=== PATIENT | female | born 1965 | race Caucasian/White ===

== ENCOUNTER 2019-11-25 03:00 | Emergency (ER) | payer OTHER, BC ==
[2019-11-25] MEDS ORDERED: ONDANSETRON 4 MG/2 ML VIAL ONE (04:16)
[2019-11-25] MEDS ORDERED: MORPHINE 4 MG/ML SYR ONE ×2 (04:16→06:45)
[2019-11-25] MEDS ORDERED: NA CHLORIDE 0.9% 1,000 ML ONE (04:16)
[2019-11-25 04:36] LABS: Basophils % 1.7 % (0-1.3); Hematocrit 41.8 % (36.0-45.0); Lymphocytes % 28.4 % (15.3-44.8); MPV 7.6 fL (7.6-11.3); RBC Red Blood Cell Count 4.92 M/uL (3.86-4.86)
[2019-11-25 04:51] LABS: Albumin 3.8 g/dL (3.4-5.0); Bilirubin Direct 0.1 mg/dL (0-0.2); Bilirubin Total 0.4 mg/dL (0.2-1.0); Potassium 4.2 mmol/L (3.5-5.1); Protein, Total 7.6 g/dL (6.4-8.2)
[2019-11-25 06:08] LABS: Urine Blood TRACE (NEG); Urine Glucose NEGATIVE (NEG); Urine Protein NEGATIVE (NEG); Urine Specific Gravity 1.015 (1.005-1.030)
[2019-11-25] MEDS ORDERED: CIPROFLOXACIN 400mg IV 400 MG/200 ML BAG IV ONE (06:40)
[2019-11-25] MEDS ORDERED: METRONIDAZOLE 500mg IVPB 500 MG/100 ML BAG IV ONE (06:40)
--- NOTE | 2019-11-25 06:55 | EDPHYS ---
Physician Documentation [facility] Name: Libra Coleman Age: 54 yrs Sex: Female : 1965 Arrival Date: 11/25/2019 Time: 03:03 Bed 8 Private MD: ED Physician Phil Souza HPI: 11/24 04:14 This 54 yrs old Female presents to ER via Ambulatory with complaints of Side mh7 Pain, COVID 19 +. 04:14 The patient presents with abdominal pain in the left lower quadrant. Onset: The mh7 symptoms/episode began/occurred 1 week(s) ago. The symptoms do not radiate. Associated signs and symptoms:. 04:15 Associated signs and symptoms: Pertinent positives: diarrhea, nausea, Pertinent mh7 negatives: anorexia, blood in stools, chest pain, constipation, dysuria, fever, headache, hematuria, palpitations, shortness of breath, vaginal discharge, vomiting, vomiting blood. The symptoms are described as intermittent, vague, waxing/waning. Modifying factors: The symptoms are alleviated by nothing, the symptoms are aggravated by nothing. Severity of pain: At its worst the pain was moderate yesterday, in the emergency department the pain has improved moderately. The patient has experienced similar episodes in the past, a few times. 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 - Social history:: Smoking status: Patient denies any tobacco usage or history of. ROS: 04:15 Constitutional: Negative for fever, chills, and weight loss, Eyes: Negative for injury, mh7 pain, redness, and discharge, ENT: Negative for injury, pain, and discharge, Neck: Negative for injury, pain, and swelling, Cardiovascular: Negative for chest pain, palpitations, and edema, Respiratory: Negative for shortness of breath, cough, wheezing, and pleuritic chest pain, Back: Negative for injury and pain, : Negative for injury, bleeding, discharge, and swelling, MS/Extremity: Negative for injury and deformity, Skin: Negative for injury, rash, and discoloration, Neuro: Negative for headache, weakness, numbness, tingling, and seizure, Psych: Negative for depression, anxiety, suicide ideation, homicidal ideation, and hallucinations, Allergy/Immunology: Negative for hives, rash, and allergies, Endocrine: Negative for neck swelling, polydipsia, polyuria, polyphagia, and marked weight changes, Hematologic/Lymphatic: Negative for swollen nodes, abnormal bleeding, and unusual bruising. Exam: 04:15 Constitutional: This is a well developed, well nourished patient who is awake, alert, mh7 and in no acute distress. Head/Face: Normocephalic, atraumatic. Eyes: Pupils equal round and reactive to light, extra-ocular motions intact. Lids and lashes normal. Conjunctiva and sclera are non-icteric and not injected. Cornea within normal limits. Periorbital areas with no swelling, redness, or edema. Neck: Trachea midline, no thyromegaly or masses palpated, and no cervical lymphadenopathy. Supple, full range of motion without nuchal rigidity, or vertebral point tenderness. No Meningismus. Chest/axilla: Normal chest wall appearance and motion. Nontender with no deformity. No lesions are appreciated. Cardiovascular: Regular rate and rhythm with a normal S1 and S2. No gallops, murmurs, or rubs. Normal PMI, no JVD. No pulse deficits. Respiratory: Lungs have equal breath sounds bilaterally, clear to auscultation and percussion. No rales, rhonchi or wheezes noted. No increased work of breathing, no retractions or nasal flaring. 04:15 Back: No spinal tenderness. No costovertebral tenderness. Full range of motion. Skin: Warm, dry with normal turgor. Normal color with no rashes, no lesions, and no evidence of cellulitis. MS/ Extremity: Pulses equal, no cyanosis. Neurovascular intact. Full, normal range of motion. Neuro: Awake and alert, GCS 15, oriented to person, place, time, and situation. Cranial nerves II-XII grossly intact. Motor strength 5/5 in all extremities. Sensory grossly intact. Cerebellar exam normal. Normal gait. Psych: Awake, alert, with orientation to person, place and time. Behavior, mood, and affect are within normal limits. 04:15 Abdomen/GI: Inspection: abdomen appears normal, obese Bowel sounds: normal, in all quadrants, Palpation: moderate abdominal tenderness, in the left lower quadrant, Rectal exam: the exam is deferred, because of patient request, Indicators: McBurney's point is not tender, Leiva's sign is negative, Rovsing's sign is negative, Obturator sign is negative, Psoas sign is negative, Liver: no appreciated palpable abnormalities, Hernia: not appreciated. Vital Signs: 03:23 BP 144 / 92; Pulse 87; Resp 18; Temp 98.0(O); Pulse Ox 100% on R/A; Weight 95.71 kg sg (R); Height 5 ft. 4 in. (162.56 cm); Pain 7/10; 04:40 BP 145 / 72; Pulse 78; Resp 19; Pulse Ox 100% ; rr5 05:57 BP 119 / 71; Pulse 80; Resp 16; Pulse Ox 99% on R/A; rr5 06:30 BP 135 / 76; Pulse 76; Resp 19; Temp 97.6; Pulse Ox 100% ; Pain 9/10; rr5 07:00 BP 132 / 71; Pulse 76; Resp 16; Pulse Ox 97% ; bp 08:00 BP 127 / 71; Pulse 67; Resp 17; Temp 97.9; Pulse Ox 99% ; bp 03:23 Body Mass Index 36.22 (95.71 kg, 162.56 cm) MDM: 03:56 Patient medically screened. mh7 06:52 Differential diagnosis: appendicitis, bowel obstruction, diverticulitis, non-specific mh7 abd pain, Pyelonephritis, Ureterolithiasis, urinary tract infection. Data reviewed: vital signs, nurses notes, lab test result(s), CBC, electrolytes, urinalysis, radiologic studies, CT scan. Data interpreted: Pulse oximetry: on room air is 100 %. Counseling: I had a detailed discussion with the patient and/or guardian regarding: the historical points, exam findings, and any diagnostic results supporting the discharge/admit diagnosis, lab results, radiology results, the need for outpatient follow up, to return to the emergency department if symptoms worsen or persist or if there are any questions or concerns that arise at home. Response to treatment: the patient's symptoms have markedly improved after treatment. 11/24 03:57 Order name: Basic Metabolic Panel; Complete Time: 04:56 11/24 03:57 Order name: CBC with Diff; Complete Time: 04:56 11/24 03:57 Order name: Hepatic Function; Complete Time: 04:56 11/24 03:57 Order name: Lipase; Complete Time: 04:56 11/24 05:23 Order name: CREATININE WHOLE BLOOD; Complete Time: 05:25 EDMS 11/24 05:24 Order name: CREATININE WHOLE BLOOD [facility] 11/24 03:57 Order name: CT Abd/Pelvis - IV Contrast Only [facility] 11/24 05:35 Order name: Urine Culture 11/24 05:35 Order name: Urine Microscopic Only 11/24 05:35 Order name: Urine --Ancillary (enter results); Complete Time: 06:16 tt11/24 05:35 Order name: Urine Dipstick--Ancillary (enter results); Complete Time: 06:16 tt11/24 03:57 Order name: IV Saline Lock; Complete Time: 04:25 11/24 03:57 Order name: Labs collected and sent; Complete Time: 04:25 11/24 03:57 Order name: Urine Dipstick-Ancillary (obtain specimen); Complete Time: 05:32 11/24 04:20 Order name: Urine Test (obtain specimen); Complete Time: 05:32 Administered Medications: 04:20 Drug: Zofran (Ondansetron) 4 mg Route: IVP; Site: right antecubital; rr5 05:20 Follow up: Response: No adverse reaction rr5 04:22 Drug: morphine 4 mg {Note: rass 0.} Route: IVP; Site: right antecubital; rr5 05:20 Follow up: Response: No adverse reaction; RASS: Alert and Calm (0) rr5 04:24 Drug: NS 0.9% 1000 ml Route: IV; Rate: 1000 ml; Site: right antecubital; rr5 05:10 Follow up: Response: No adverse reaction; IV Status: Completed infusion; IV Intake: rr5 1000ml 06:30 Drug: Flagyl 500 mg Volume: 100 ml; Route: IVPB; Rate: 200 ml/hr; Infused Over: 30 rr5 mins; Site: right antecubital; 07:00 Follow up: Response: No adverse reaction; IV Status: Completed infusion; IV Intake: rr5 100ml 07:25 Follow up: Response: No adverse reaction; IV Status: Completed infusion jr10 06:39 Drug: morphine 4 mg {Note: rass 0.} Route: IVP; Site: right antecubital; rr5 07:25 Follow up: Response: No adverse reaction jr10 07:24 Drug: Cipro 400 mg Volume: 200 ml; Route: IVPB; Infused Over: 60 mins; Site: right jr10 antecubital; 08:18 Follow up: IV Status: Completed infusion; IV Intake: 100ml bp Disposition: 11/25/19 06:54 Discharged to Home. Impression: Diverticulitis. - Condition is Stable. - Discharge Instructions: Diverticulitis, [id number]. - Prescriptions for Zofran ODT 4 mg Oral tablet,disintegrating - place 1 tablet by TRANSLINGUAL route every 8 hours; 10 tablet. Colace 100 mg Oral Capsule - take 1 tablet by ORAL route every 12 hours; 20 tablet. Flagyl 500 mg Oral Tablet - take 1 tablet by ORAL route every 8 hours for 10 days; 30 tablet. Tylenol- Codeine #3 300-30 mg Oral Tablet - take 2 tablets by ORAL route every 6 hours As needed; 24 tablet. Cipro 500 mg Oral Tablet - take 1 tablet by ORAL route every 12 hours for 10 days; 20 tablet. Bentyl 20 mg Oral Tablet - take 1 tablet by ORAL route every 6 hours As needed; 20 tablet. - Work release form, Medication Reconciliation Form, Thank You Letter, Antibiotic Education, Prescription Opioid Use form. - Follow up: Private Physician; When: 2 - 3 days; Reason: Worsening of condition, Recheck today's complaints, Continuance of care, Re-evaluation by your physician. Follow up: Carmine Bailey MD; When: 2 - 3 days; Reason: Worsening of condition, Recheck today's complaints. - Problem is an acute exacerbation. - Symptoms have improved. Signatures: Dispatcher [employer] EDDiego Solorio RN RN sg Aaron Velasquez RN RN Antonio Dougherty RN RN rr5 Phil Souza MD MD [facility] Denae Up RN RN [email or web address] Corrections: (The following items were deleted from the chart) 08:19 06:54 11/25/2019 06:54 Discharged to Home. Impression: Diverticulitis. Condition is bp Stable. Forms are Work release form, Medication Reconciliation Form, Thank You Letter, Antibiotic Education, Prescription Opioid Use. Follow up: Private Physician; When: 2 - 3 days; Reason: Worsening of condition, Recheck today's complaints, Continuance of care, Re-evaluation by your physician. Follow up: Carmine Bailey; When: 2 - 3 days; Reason: Worsening of condition, Recheck today's complaints. Problem is an acute exacerbation. Symptoms have improved. mh7
--- NOTE | 2019-11-25 06:55 | ER ---
Nurse's Notes [facility] Name: Libra Coleman Age: 54 yrs Sex: Female : 1965 Arrival Date: 11/25/2019 Time: 03:03 Bed 8 Private MD: Diagnosis: Diverticulitis Presentation: 11/24 03:23 Chief complaint: Patient states: Left sided abdominal pain that began on 11/18/2019, sg reports drinking OJ with Pulp to help with diarrhea and believes that may have caused a flare up of diverticulitis. pt states having Nausea, Diarrhea. Coronavirus screen: Patient denies a cough. Patient denies shortness of breath or difficulty breathing. Patient denies measured and/or subjective temperature greater than 100.4F prior to today's visit. Patient denies travel on a cruise ship or to a country the [facility] currently lists as an affected area. Patient denies contact with known and/or suspected case of COVID-19. Prior COVID test collected on: 11-16-2019 positive are currently unavailable. Ebola Screen: Patient negative for fever greater than or equal to 101.5 degrees Fahrenheit, and additional compatible Ebola Virus Disease symptoms Patient denies exposure to infectious person. Patient denies travel to an Ebola-affected area in the 21 days before illness onset. No symptoms or risks identified at this time. Initial Sepsis Screen: Does the patient meet any 2 criteria? No. Patient's initial sepsis screen is negative. Does the patient have a suspected source of infection? Yes: Acute abdominal pain. Risk Assessment: Do you want to hurt yourself or someone else? Patient reports no desire to harm self or others. Onset of symptoms was November 18, 2019. Care prior to arrival: None. Transition of care: patient was not received from another setting of care. 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 - Social history:: Smoking status: Patient denies any tobacco usage or history of. Screenin:30 Abuse screen: Denies threats or abuse. Denies injuries from another. Nutritional rr5 screening: No deficits noted. Tuberculosis screening: No symptoms or risk factors identified. Fall Risk IV access (20 points). Total Mallory Fall Scale indicates No Risk (0-24 pts). Assessment: 03:30 General: Appears in no apparent distress. uncomfortable, Behavior is calm, cooperative, rr5 appropriate for age. 03:30 Pain: Complains of pain in left lower quadrant Pain radiates to anterior aspect of left rr5 lateral abdomen Pain currently is 7 out of 10 on a pain scale. Quality of pain is described as aching, Pain began gradually, Is intermittent. Neuro: Level of Consciousness is awake, alert, obeys commands, Oriented to person, place, time, situation. Cardiovascular: Capillary refill < 3 seconds Patient's skin is warm and dry. Respiratory: Airway is patent Respiratory effort is even, unlabored, Respiratory pattern is regular, symmetrical. GI: Abdomen is round non-distended, Reports lower abdominal pain, diarrhea, nausea, vomiting. : No signs and/or symptoms were reported regarding the genitourinary system. EENT: No signs and/or symptoms were reported regarding the EENT system. Derm: Skin is intact, is healthy with good turgor, Skin temperature is warm. Musculoskeletal: Circulation, motion, and sensation intact. Capillary refill < 3 seconds. 04:30 Reassessment: Patient appears in no apparent distress at this time. Patient is alert, rr5 oriented x 3, equal unlabored respirations, skin warm/dry/pink. awaiting for results. 06:00 Reassessment: Patient appears in no apparent distress at this time. Patient is alert, rr5 oriented x 3, equal unlabored respirations, skin warm/dry/pink. awaiting for CT result. no complaints made. 06:30 Reassessment: Patient appears in no apparent distress at this time. complaints of rr5 abdominal pain, ED provider aware with order made and carried out. 07:00 Reassessment: RECD REPORT FROM JUSTICE HA. 54YO WF P/W LLQ PAIN, PRESUMPTIVE +COVID. bp D/C ON HOLD FOR ABX COMPLETION. 08:16 Reassessment: PT D/C HOME AMBULATORY, TO MAINTAIN HOME QUARANTINE. DX WITH bp DIVERTICULITIS. Vital Signs: 03:23 BP 144 / 92; Pulse 87; Resp 18; Temp 98.0(O); Pulse Ox 100% on R/A; Weight 95.71 kg sg (R); Height 5 ft. 4 in. (162.56 cm); Pain 7/10; 04:40 BP 145 / 72; Pulse 78; Resp 19; Pulse Ox 100% ; rr5 05:57 BP 119 / 71; Pulse 80; Resp 16; Pulse Ox 99% on R/A; rr5 06:30 BP 135 / 76; Pulse 76; Resp 19; Temp 97.6; Pulse Ox 100% ; Pain 9/10; rr5 07:00 BP 132 / 71; Pulse 76; Resp 16; Pulse Ox 97% ; bp 08:00 BP 127 / 71; Pulse 67; Resp 17; Temp 97.9; Pulse Ox 99% ; bp 03:23 Body Mass Index 36.22 (95.71 kg, 162.56 cm) ED Course: 03:03 Patient arrived in ED. cl3 03:22 Phil Souza MD is Attending Physician. mh7 03:23 Arm band placed on. sg 03:27 Triage completed. sg 03:30 Patient has correct armband on for positive identification. Bed in low position. Call rr5 light in reach. Pulse ox on. NIBP on. 03:46 Justice Atwood RN is Primary Nurse. rr5 04:20 No provider procedures requiring assistance completed. Inserted saline lock: 20 gauge rr5 in right antecubital area, using aseptic technique. Blood collected. 06:10 CT Abd/Pelvis - IV Contrast Only In Process Unspecified. EDMS 06:53 Carmine Bailey MD is Referral Physician. mh7 08:17 IV discontinued, intact, bleeding controlled, No redness/swelling at site. Pressure bp dressing applied. Administered Medications: 04:20 Drug: Zofran (Ondansetron) 4 mg Route: IVP; Site: right antecubital; rr5 05:20 Follow up: Response: No adverse reaction rr5 04:22 Drug: morphine 4 mg {Note: rass 0.} Route: IVP; Site: right antecubital; rr5 05:20 Follow up: Response: No adverse reaction; RASS: Alert and Calm (0) rr5 04:24 Drug: NS 0.9% 1000 ml Route: IV; Rate: 1000 ml; Site: right antecubital; rr5 05:10 Follow up: Response: No adverse reaction; IV Status: Completed infusion; IV Intake: rr5 1000ml 06:30 Drug: Flagyl 500 mg Volume: 100 ml; Route: IVPB; Rate: 200 ml/hr; Infused Over: 30 rr5 mins; Site: right antecubital; 07:00 Follow up: Response: No adverse reaction; IV Status: Completed infusion; IV Intake: rr5 100ml 07:25 Follow up: Response: No adverse reaction; IV Status: Completed infusion jr10 06:39 Drug: morphine 4 mg {Note: rass 0.} Route: IVP; Site: right antecubital; rr5 07:25 Follow up: Response: No adverse reaction jr10 07:24 Drug: Cipro 400 mg Volume: 200 ml; Route: IVPB; Infused Over: 60 mins; Site: right jr10 antecubital; 08:18 Follow up: IV Status: Completed infusion; IV Intake: 100ml bp Intake: 05:10 IV: 1000ml; Total: 1000ml. rr5 07:00 IV: 100ml; Total: 1100ml. rr5 08:18 IV: 100ml; Total: 1200ml. bp Outcome: 06:54 Discharge ordered by . Edwin 08:17 Discharged to home ambulatory. bp 08:17 Condition: stable 08:17 Discharge instructions given to patient, Instructed on discharge instructions, follow up and referral plans. medication usage, Demonstrated understanding of instructions, follow-up care, medications, Prescriptions given X 6 08:19 Patient left the ED. bp Signatures: Dispatcher [employer] EDMS Diego Pavon RN DILCIA Aaron Velasquez RN RN Justice Dougherty RN RN rr5 Aren Salinas3 Phil Souza MD MD Denae Magana RN RN [email or web address]
[2019-11-25 07:02] LABS: Urine Bacteria 20-50 /HPF (<20); Urine Culture Reflex Order NOT NEEDED; Urine RBC <5 /HPF (NONE SEEN)
[2019-11-25 08:31] VITALS: BP 127/71; TEMP 97.9; O2SAT 99
--- NOTE | 2019-11-25 17:33 | RAD REPORT ---
EXAM DESCRIPTION: CT - Abdomen Pelvis W Contrast - 11/25/2019 7:05 am CLINICAL HISTORY: ABD PAIN COMPARISON: None. TECHNIQUE: CT ABDOMEN PELVIS WITH IV CONTRAST on 11/25/2019 3:57 AM CDT This exam was performed according to our departmental dose-optimization program, which includes autom ated exposure control, adjustment of the mA and/or kV according to patient size and/or use of iterati ve reconstruction technique. FINDINGS: Lower lungs are clear. Abdomen: Liver is fatty in attenuation and is enlarged. There is no biliary dilatation. Gallbladder i s normal in appearance. The pancreas and spleen are normal in appearance. The adrenal glands and kidn eys are unremarkable. Abdominal aorta is normal in course and caliber without aneurysm. There is no free air. There is no r etroperitoneal adenopathy. Pelvis: There is mild left colonic diverticulosis. There is short segmental thickening of the distal descending colon with surrounding inflammation. Urinary bladder is unremarkable. There is no free flu id. Uterus is normal in size. Appendix is normal. Skeleton: There are no acute osseous findings. No suspicious bony lesions. IMPRESSION: Probable acute diverticulitis of the distal descending colon. Recommend follow-up colono scopy to exclude an underlying mass. Electronically signed by: Quincy Hagen MD 11/25/2019 5:49 AM CDT Due to temporary technical issues with the PACS/Fluency reporting system, reports are being signed by the in house radiologist without review as a courtesy to ensure prompt reporting. The interpreting r adiologist is fully responsible for the content of the report.
== END 2019-11-25 08:19 | disposition home or self-care (01) ==
LOC: ER 03:00
DX: K57.92 Diverticulitis of intestine, part unspecified, without perforation or abscess without bleeding (principal); E11.9 Type 2 diabetes mellitus without complications
CPT/HCPCS: 96365; 96367; 96361; 87088; 85025; 87086; 80048; 36415; 81025; 82565; 80076; 83690; 74177; 96375; 99284; Q9967; J7030; J2405; J0744; 81003; 81015

== ENCOUNTER 2020-10-21 09:52 | Emergency (ER) | payer BC, OTHER ==
[2020-10-21 10:56] LABS: Urine Blood Negative (Negative); Urine Glucose Negative (Negative); Urine Protein 1+ (Negative); Urine Specific Gravity >=1.030 (1.005-1.030); Urine pH 5.5 (5.0-7.0)
[2020-10-21 11:07] LABS: Albumin 3.8 g/dL (3.4-5.0); Bilirubin Direct 0.2 mg/dL (0-0.2); Bilirubin Total 0.8 mg/dL (0.2-1.0); Potassium 4.2 mmol/L (3.5-5.1); Protein, Total 7.7 g/dL (6.4-8.2)
[2020-10-21] MEDS ORDERED: ONDANSETRON 4 MG/2 ML VIAL ONE ×2 (11:07→12:50)
[2020-10-21] MEDS ORDERED: NA CHLORIDE 0.9% 1,000 ML ONE (11:07)
[2020-10-21] MEDS ORDERED: MORPHINE 4 MG/ML SYR ONE (11:07)
[2020-10-21 11:09] LABS: Urine Bacteria >50 /HPF (<20); Urine RBC NONE SEEN /HPF (NONE SEEN)
[2020-10-21 11:11] LABS: Absolute Lymphocytes (CBC) 3.4 K/uL (0.7-4.9); Basophils % 0.7 % (0-1.3); Hematocrit 41.8 % (36.0-45.0); Lymphocytes % 26.4 % (15.3-44.8); MPV 7.7 fL (7.6-11.3); RBC Red Blood Cell Count 4.87 M/uL (3.86-4.86)
--- NOTE | 2020-10-21 11:41 | RAD REPORT ---
EXAM DESCRIPTION: CT - Abdomen Pelvis W Contrast - 10/21/2020 11:03 am CLINICAL HISTORY: Flank pain;Abd pain COMPARISON: Abdomen Pelvis W Contrast dated 11/25/2019 TECHNIQUE: Biphasic, helical CT imaging of the abdomen and pelvis was performed following 100 ml non -ionic IV contrast. No oral contrast was given. All CT scans are performed using dose optimization technique as appropriate and may include automated exposure control or mA/KV adjustment according to patient size. FINDINGS: No suspicious findings in the lung bases. Again noted is diffuse fatty infiltration of the liver with no focal liver lesion. No portal vein abn ormality. Pancreas and spleen show no suspicious findings. Gallbladder and biliary tree are also with out suspicious finding. Symmetric renal function is seen with no hydronephrosis or suspicious renal mass. No pyelonephritis o r acute parenchymal process. No bladder abnormalities. No adrenal abnormalities. No uterine abnormali ty. Small left ovary is seen. A 2.5 centimeter right ovarian or paraovarian cyst. No stomach or small bowel abnormality. The appendix is normal. Patient has moderately prominent luu d iverticulosis pattern. In the descending colon there is a 7 centimeter long segment of wall thickenin g with stranding in the adjacent fat. No free air, abscess or extravasation of intraluminal content. No free air, free fluid or inflammatory stranding elsewhere. No hernia, mass or bulky lymphadenopat hy. No suspicious bony findings. IMPRESSION: Mild acute diverticulitis of the descending colon. No abscess, free air or emergent complication.
--- NOTE | 2020-10-21 11:54 | ER ---
Nurse's Notes [facility] Name: Libra Coleman Age: 54 yrs Sex: Female : 1965 Arrival Date: 10/21/2020 Time: 09:57 Bed 6 Private MD: Shahzad Hollingsworth E Diagnosis: Diverticulitis of large intestine without perforation or abscess without bleeding Presentation: 10/21 10:05 Chief complaint: Patient states: "I am having left sided pain that is coming to the j back. history of diverticulitis.". Coronavirus screen: At this time, the client does not indicate any symptoms associated with coronavirus-19. Ebola Screen: Patient negative for fever greater than or equal to 101.5 degrees Fahrenheit, and additional compatible Ebola Virus Disease symptoms. Initial Sepsis Screen: Does the patient meet any 2 criteria? No. Patient's initial sepsis screen is negative. Does the patient have a suspected source of infection? No. Patient's initial sepsis screen is negative. Risk Assessment: Do you want to hurt yourself or someone else? Patient reports no desire to harm self or others. Onset of symptoms was October 21, 2020. 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 - Social history:: Smoking status: Patient/guardian denies using tobacco, but has a distant history of tobacco abuse. Screenin:13 Abuse screen: Denies threats or abuse. Denies injuries from another. Nutritional tr6 screening: No deficits noted. Tuberculosis screening: No symptoms or risk factors identified. Fall Risk None identified. Assessment: 11:15 General: Appears in no apparent distress. Behavior is calm, cooperative. Pain: Pain hb currently is 9 out of 10 on a pain scale. Neuro: Level of Consciousness is awake, alert, obeys commands, Oriented to person, place, time, situation. Cardiovascular: Patient's skin is warm and dry. Rhythm is regular. Respiratory: Airway is patent Respiratory effort is even, unlabored, Respiratory pattern is regular, symmetrical. GI: Reports lower abdominal pain. : No signs and/or symptoms were reported regarding the genitourinary system. EENT: No signs and/or symptoms were reported regarding the EENT system. Derm: Skin is pink, warm \\T\\ dry. Musculoskeletal: No signs and/or symptoms reported regarding the musculoskeletal system. 12:00 Reassessment: Patient appears in no apparent distress at this time. Patient and/or hb family updated on plan of care and expected duration. Pain level reassessed. Patient is alert, oriented x 3, equal unlabored respirations, skin warm/dry/pink. Vital Signs: 10:07 BP 152 / 92; Pulse 94; Resp 17 S; Temp 97.6(TE); Pulse Ox 99% on R/A; Weight 97.52 kg jd3 (R); Height 5 ft. 4 in. (162.56 cm) (R); Pain 10/10; 11:13 BP 137 / 74; Pulse 86; Resp 18; Pulse Ox 100% on R/A; tr6 10:07 Body Mass Index 36.90 (97.52 kg, 162.56 cm) jd3 ED Course: 09:57 Patient arrived in ED. mr 09:57 Shahzad Hollingsworth MD is Private Physician. mr 10:06 Triage completed. jd3 10:08 Arm band placed on. jd3 10:23 Raheel Olvera NP is PHCP. pm1 10:23 Concha Bird MD is Attending Physician. pm1 11:04 CT Abd/Pelvis - IV Contrast Only In Process Unspecified. EDMS 11:11 Carol Saucedo, DILCIA is Primary Nurse. tr6 11:13 Patient has correct armband on for positive identification. Bed in low position. Call tr6 light in reach. Side rails up X 1. Pulse ox on. NIBP on. Door closed. Noise minimized. Visitors limited. Lights dimmed. Warm blanket given. 11:13 No provider procedures requiring assistance completed. Inserted saline lock: 20 gauge tr6 in right antecubital area, using aseptic technique. Blood collected. 12:29 IV discontinued, intact, bleeding controlled, Pressure dressing applied. hb Administered Medications: 11:11 Drug: morphine 4 mg Route: IVP; Site: right antecubital; tr6 11:44 Follow up: Response: No adverse reaction hb 11:11 Drug: Zofran (Ondansetron) 4 mg Route: IVP; Site: right antecubital; tr6 11:44 Follow up: Response: No adverse reaction hb 11:12 Drug: NS 0.9% 1000 ml Route: IV; Rate: 1000 ml; Site: right antecubital; tr6 12:10 Follow up: Response: No adverse reaction; IV Status: Completed infusion; IV Intake: hb 1000ml 11:59 Drug: Flagyl (metroNIDAZOLE) 500 mg Volume: 100 ml; Route: IVPB; Rate: 200 ml/hr; tr6 Infused Over: 30 mins; Site: right antecubital; 12:30 Follow up: Response: No adverse reaction; IV Status: Completed infusion; IV Intake: hb 200ml 11:59 Drug: Cipro (ciprofloxacin) 500 mg Route: PO; tr6 12:30 Follow up: Response: No adverse reaction hb 12:28 Drug: Zofran (Ondansetron) 4 mg Route: IVP; Site: right antecubital; hb 12:30 Follow up: Response: Medication administered at discharge. hb 12:28 CANCELLED (Duplicate Order): Zofran (Ondansetron) 4 mg IVP once; over 2 minutes hb Intake: 12:10 IV: 1000ml; Total: 1000ml. hb 12:30 IV: 200ml; Total: 1200ml. hb Outcome: 11:53 Discharge ordered by MD. pm1 12:28 Discharged to home ambulatory. hb 12:28 Condition: stable 12:28 Discharge instructions given to patient, Instructed on discharge instructions, follow up and referral plans. medication usage, Demonstrated understanding of instructions, follow-up care, medications, Prescriptions given X 4. 12:38 Patient left the ED. tr6 Signatures: Dispatcher [employer] AZALIA UpBeth mcconnell MayRaheel, ALFONSO MATRIX DRIER TENDER pm1 Cherelle Bettencourt, RN RN Catracho Wagner RN RN Carol Holder RN RN tr6
--- NOTE | 2020-10-21 11:54 | EDPHYS ---
Physician Documentation [facility] Name: Libra Coleman Age: 54 yrs Sex: Female : 1965 Arrival Date: 10/21/2020 Time: 09:57 Bed 6 Private MD: Shahzad Hollingsworth E ED Physician Concha Bird HPI: 10/21 11:18 This 54 yrs old Female presents to ER via Ambulatory with complaints of Flank pm1 Pain. 11:18 The patient presents with abdominal pain in the left lower quadrant. Onset: The pm1 symptoms/episode began/occurred yesterday. The symptoms radiate to left low back. Associated signs and symptoms: Pertinent positives: nausea, Pertinent negatives: chest pain, diarrhea, shortness of breath, vomiting. The symptoms are described as achy. Modifying factors: The symptoms are alleviated by nothing, the symptoms are aggravated by nothing. Severity of pain: in the emergency department the pain is unchanged. The patient has experienced similar episodes in the past, a few times, today's symptoms are similar, to previous diverticulitis. Reports that her diverticulitis in the past started in the left lower back with radiation to LLQ. The patient has not recently seen a physician. 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 - Social history:: Smoking status: Patient/guardian denies using tobacco, but has a distant history of tobacco abuse. ROS: 11:21 Constitutional: Negative for fever, chills, and weight loss, Eyes: Negative for injury, pm1 pain, redness, and discharge, ENT: Negative for injury, pain, and discharge, Cardiovascular: Negative for chest pain, palpitations, and edema, Respiratory: Negative for shortness of breath, cough, wheezing, and pleuritic chest pain. 11:21 : Negative for injury, bleeding, discharge, and swelling, MS/Extremity: Negative for injury and deformity, Skin: Negative for injury, rash, and discoloration, Neuro: Negative for headache, weakness, numbness, tingling, and seizure. 11:21 Abdomen/GI: Positive for abdominal pain, nausea, Negative for vomiting, diarrhea, constipation. 11:21 Back: Positive for flank pain, on the left. Exam: 11:21 Constitutional: This is a well developed, well nourished patient who is awake, alert, pm1 and in no acute distress. Head/Face: Normocephalic, atraumatic. 11:21 Skin: Warm, dry with normal turgor. Normal color with no rashes, no lesions, and no evidence of cellulitis. MS/ Extremity: Pulses equal, no cyanosis. Neurovascular intact. Full, normal range of motion. 11:21 Eyes: Exam is negative for acute changes, Periorbital structures: appear normal, Extraocular movements: intact throughout, Conjunctiva: no acute changes. 11:21 ENT: Exam is negative for acute changes, Mouth: Lips: normal, Oral mucosa: normal, pink and intact, moist. 11:21 Cardiovascular: Exam negative for acute changes, Rate: normal, Rhythm: regular, Pulses: no pulse deficits are appreciated. 11:21 Respiratory: Exam negative for acute changes, respiratory distress, shortness of breath. 11:21 Abdomen/GI: Inspection: abdomen appears normal, Palpation: soft, in all quadrants, mild abdominal tenderness, in the left upper quadrant. 11:21 Back: pain, that is mild, of the left low back, vertebral tenderness, is not appreciated. 11:21 Neuro: Exam negative for acute changes, Orientation: is normal, Mentation: is normal, Motor: is normal, moves all fours. Vital Signs: 10:07 BP 152 / 92; Pulse 94; Resp 17 S; Temp 97.6(TE); Pulse Ox 99% on R/A; Weight 97.52 kg jd3 (R); Height 5 ft. 4 in. (162.56 cm) (R); Pain 10/10; 11:13 BP 137 / 74; Pulse 86; Resp 18; Pulse Ox 100% on R/A; tr6 10:07 Body Mass Index 36.90 (97.52 kg, 162.56 cm) jd3 MDM: 10:29 Patient medically screened. pm1 11:23 Data reviewed: vital signs. Data interpreted: Pulse oximetry: on room air is 100 %. pm1 Interpretation: normal. 11:49 Counseling: I had a detailed discussion with the patient and/or guardian regarding: the pm1 historical points, exam findings, and any diagnostic results supporting the discharge/admit diagnosis, lab results, radiology results, the need for outpatient follow up, a veterinary laboratory diagnostician. 11:50 ED course: Patient offered admission. She refused and prefers to go home. No vomiting pm1 or fever present. Patient educated on clear liquid diet and need for follow up with GI for treatment, evaluation , and colonoscopy once diverticulitis resolved. 12:11 ED course: PMPaware reviewed. pm1 10/21 10:30 Order name: Basic Metabolic Panel pm1 10/21 10:30 Order name: CBC with Diff pm1 10/21 10:30 Order name: Hepatic Function; Complete Time: 11:10 pm10/21 10:30 Order name: Lipase; Complete Time: 11:10 pm10/21 10:30 Order name: Urine Microscopic Only; Complete Time: 11:10 pm10/21 10:30 Order name: Basic Metabolic Panel; Complete Time: 11:10 EDMS 10/21 10:30 Order name: CBC with Automated Diff; Complete Time: 11:33 EDMS 10/21 10:32 Order name: CT Abd/Pelvis - IV Contrast Only; Complete Time: 11:43 pm10/21 10:56 Order name: Urine Dipstick-Ancillary; Complete Time: 11:03 EDMS 10/21 10:30 Order name: IV Saline Lock; Complete Time: 11:12 pm10/21 10:30 Order name: Labs collected and sent; Complete Time: 11:12 pm10/21 10:30 Order name: Urine Dipstick-Ancillary (obtain specimen); Complete Time: 11:12 pm1 Administered Medications: 11:11 Drug: morphine 4 mg Route: IVP; Site: right antecubital; tr6 11:44 Follow up: Response: No adverse reaction hb 11:11 Drug: Zofran (Ondansetron) 4 mg Route: IVP; Site: right antecubital; tr6 11:44 Follow up: Response: No adverse reaction hb 11:12 Drug: NS 0.9% 1000 ml Route: IV; Rate: 1000 ml; Site: right antecubital; tr6 12:10 Follow up: Response: No adverse reaction; IV Status: Completed infusion; IV Intake: hb 1000ml 11:59 Drug: Flagyl (metroNIDAZOLE) 500 mg Volume: 100 ml; Route: IVPB; Rate: 200 ml/hr; tr6 Infused Over: 30 mins; Site: right antecubital; 12:30 Follow up: Response: No adverse reaction; IV Status: Completed infusion; IV Intake: hb 200ml 11:59 Drug: Cipro (ciprofloxacin) 500 mg Route: PO; tr6 12:30 Follow up: Response: No adverse reaction hb 12:28 Drug: Zofran (Ondansetron) 4 mg Route: IVP; Site: right antecubital; hb 12:30 Follow up: Response: Medication administered at discharge. hb 12:28 CANCELLED (Duplicate Order): Zofran (Ondansetron) 4 mg IVP once; over 2 minutes hb Disposition: 10/21/20 11:53 Discharged to Home. Impression: Diverticulitis of large intestine without perforation or abscess without bleeding. - Condition is Stable. - Discharge Instructions: Clear Liquid Diet, Adult, Diverticulitis. - Prescriptions for Flagyl 500 mg Oral Tablet - take 1 tablet by ORAL route every 6 hours for 10 days; 40 tablet. Cipro 500 mg Oral Tablet - take 1 tablet by ORAL route every 12 hours for 10 days; 20 tablet. Zofran ODT 4 mg Oral tablet,disintegrating - place 1 tablet by TRANSLINGUAL route every 8 hours As needed; 15 tablet. Tylenol- Codeine #3 300-30 mg Oral Tablet - take 2 tablet by ORAL route every 6 hours As needed; 20 tablet. - Work release form, Medication Reconciliation Form, Thank You Letter, Antibiotic Education, Prescription Opioid Use form. - Follow up: Emergency Department; When: As needed; Reason: Worsening of condition. Follow up: Private Physician; When: 2 - 3 days; Reason: Recheck today's complaints, Continuance of care, Re-evaluation by your physician. - Problem is new. - Symptoms have improved. Signatures: Dispatcher [employer] EDMS Raheel Olvera, ALFONSO WELL SERVICES OPERATOR pm1 Cherelle Bettencourt RN RN Catracho Wagner RN RN jd3 Carol Saucedo RN RN tr6 Corrections: (The following items were deleted from the chart) 12:28 12:28 Zofran (Ondansetron) 4 mg IVP once; over 2 minutes ordered. hb hb 12:38 11:53 10/21/2020 11:53 Discharged to Home. Impression: Diverticulitis of large tr6 intestine without perforation or abscess without bleeding. Condition is Stable. Forms are Medication Reconciliation Form, Thank You Letter, Antibiotic Education, Prescription Opioid Use. Follow up: Emergency Department; When: As needed; Reason: Worsening of condition. Follow up: Private Physician; When: 2 - 3 days; Reason: Recheck today's complaints, Continuance of care, Re-evaluation by your physician. Problem is new. Symptoms have improved. pm1
[2020-10-21] MEDS ORDERED: METRONIDAZOLE 500mg IVPB 500 MG/100 ML BAG IV ONE (12:15)
[2020-10-21] MEDS ORDERED: CIPROFLOXACIN HCL 500 MG TAB ONE (12:15)
[2020-10-21 12:52] VITALS: TEMP 97.6
[2020-10-21 12:55] VITALS: BP 137/74; O2SAT 100
== END 2020-10-21 12:38 | disposition home or self-care (01) ==
LOC: ER 09:52
DX: K57.32 Diverticulitis of large intestine without perforation or abscess without bleeding (principal); E11.9 Type 2 diabetes mellitus without complications; E78.00 Pure hypercholesterolemia, unspecified
CPT/HCPCS: 85025; 80048; 36415; 82565; 80076; 83690; 74177; Q9967; J7030; J2405 ×2; 81003; 81015

== ENCOUNTER 2022-09-08 10:39 | Emergency (ER) | payer BC, OTHER ==
--- OUTSIDE RECORDS SUMMARY | 2022-09-08 10:44 | XMS REPORT | Continuity of Care Document ---
:[address] [facility] Address [address] [place] [address] Care Team Providers Name Role Phone Radiology Attending Clinician Unavailable RADIOLOGY Attending Clinician Unavailable Doctor Unassigned, [place] Attending Clinician Unavailable Josephine De Los Santos RN Attending Clinician Unavailable Only, Adc Test Attending Clinician Unavailable Keegan Gottlieb MD Attending Clinician KEEGAN GOTTLIEB Attending Clinician Unavailable UNKNOWN, ATTENDING Attending Clinician Unavailable Payers Payer Name Policy Type Policy Number Effective Date Expiration Date S ource Problems This patient has no known problems. Allergies, Adverse Reactions, Alerts Allergy Allergy Status Severity Reaction(s) Onset Inactive Treating Comm ents Source Name Type Date Date Clinician NO KNOWN Drug Active [facility] ALLERGIE Class ity of [facility] [place] [place] Social History Social Habit Start Date Stop Date Quantity Comments Source Exposure to Not sure [facility] [birth year] [facility] 00:00:00 00:00:[address] [facility] Smoking Status Start Date Stop Date Source Unknown if ever smoked [facility] Medications This patient has no known medications. Immunizations Ordered Filled Immunization Date Status Comments [facility] e Immunization Name Name SARS-COV-2 COVID-19 2020-07-29 Completed Unive rsity of MODERNA VACCINE 00:00:00 [facility] SARS-COV-2 COVID-19 2020-07-29 Completed Unive rsity of MODERNA VACCINE 00:00:00 [facility] SARS-COV-2 COVID-19 2020-07-01 Completed Unive rsity of MODERNA VACCINE 00:00:00 [facility] SARS-COV-2 COVID-19 2020-07-01 Completed Unive rsity of MODERNA VACCINE 00:00:00 [facility] ical Branch Procedures Procedure Date / Time Performed Performing Clinician Sourc e US ABDOMEN LIMITED 2020-08-31 22:02:35 [facility] 2020-08-31 21:12:38 Doctor Unassigned, No [facility] ASSIGNMENT OF BENEFITS 2020-02-21 20:18:20 Doctor Unassigned, No [facility] Encounters Start End Encounter Admission Attending Care Care Encounter Source Date/Time Date/Time Type Type Clinicians Facility Department ID 2020-08-31 2020-08-31 Hospital Radiology [facility] [id number] Univers 16:13:21 23:59:00 Encounter [place] [id number] ity [facility] [id number] [facility] [id number] [facility] [address] Branch 2020-08-31 2020-08-31 Outpatient R RADIOLOGY [facility] [id number] Univers 00:00:00 00:00:00 ity of [facility] 2020-08-31 2020-08-31 Orders Doctor ANDERSON [id number] Univers 00:00:00 00:00:00 Only Unassbambi, [place] [id number] ity of [id number] [place] [id number] [facility] [address] Branch 2020-07-29 2020-07-29 Outpatient [facility] [id number] Univers 10:50:00 10:50:00 ity of [facility] 2020-07-01 2020-07-01 Outpatient [facility] [id number] Univers 11:00:00 11:00:00 ity of [facility] 2020-02-23 2020-02-23 Letter MONICA De Los Santos [id number] Univers 00:00:00 00:00:00 (Out) Josephine LEARY [id number] [facility] [id number] [place] [id number] [facility] [address] Branch 2020-02-21 2020-02-21 Laboratory Only, Adc Test [facility] [id number] Univers 15:20:17 15:35:17 Only Keegan Gottlieb [id number] ity of [place] [id number] [facility] [id number] [facility] [address] 2020-02-21 2020-02-21 Outpatient R MARIKA, [facility] [id number] Univers 15:15:00 15:15:00 KEEGAN ity of [facility] 2020-02-21 2020-02-21 Orders Doctor MONICA [id number] Univers 00:00:00 00:00:00 Only Unassigned, [place] [id number] ity [address] [place] [facility] [id number] [facility] [id number] [facility] [address] Branch 2019-11-14 2019-11-14 Outpatient R UNKNOWN, [facility] [id number] Univers 15:30:00 16:50:25 ATTENDING ity of [facility] Results Test Test Test Results Result Source Description Time Comments Comments US ABDOMEN 2020-08- Moderate hepatic Univers ity of LIMITED 30 steatosis.US ABDOMEN [facility] 22:18:58 LIMITED 08/31/2020 4:42 PM Branch HISTORY: Abdominal pain, right upper quadrant COMPARISON: None. FINDINGS: LIVER: The liver measures 18 cm in length with increased parenchymalechogenicity consistent with hepatic steatosis. No focal hepatic lesion. Normal hepatopetal ?flow within the main portal vein. Main portal veindiameter: 1.1 cm. GALLBLADDER: No cholelithiasis, pericholecystic fluid, or gallbladderdistention. No sonographic Leiva's sign. The common bile duct measures 0.5cm. PANCREAS: The visualized portion of the pancreas is unremarkable. RIGHT KIDNEY: The visualized portion of the right kidney is unremarkable. SPLEEN: Normal echogenicity measuring 11 cm. AORTA: The proximal aorta measures 2.0 cm in diameter. [facility], Radiant Results Inft User - 08/31/2020 5:20 PM CDTUS ABDOMEN LIMITED 08/31/2020 4:42 PM HISTORY: Abdominal pain, right upper quadrant COMPARISON: None. FINDINGS: LIVER: The liver measures 18 cm in length with increased parenchymalechogenicity consistent with hepatic steatosis. No focal hepatic lesion. Normal hepatopetal flow within the main portal vein. Main portal veindiameter: 1.1 cm.GALLBLADDER: No cholelithiasis, pericholecystic fluid, or gallbladderdistention. No sonographic Leiva's sign. The common bile duct measures 0.5cm.PANCREAS: The visualized portion of the pancreas is unremarkable.RIGHT KIDNEY: The visualized portion of the right kidney is unremarkable.SPLEEN: Normal echogenicity measuring 11 cm.AORTA: The proximal aorta measures 2.0 cm in diameter.IMPRESSION Moderate hepatic steatosis.
--- NOTE | 2022-09-08 14:42 | RAD REPORT ---
EXAM DESCRIPTION: RAD - Foot Right 3 View - 09/08/2022 12:43 pm CLINICAL HISTORY: blunt trauma, right 1st mtp pain COMPARISON: No comparisons TECHNIQUE: Right foot, 3 views. FINDINGS: No fracture, dislocation or periosteal reaction. No air or foreign body in the soft tissues. Small calcaneal spur. Enthesopathy at the Achilles tendo n attachment. IMPRESSION: No acute osseus abnormality of the right foot. Chronic findings as above.
--- NOTE | 2022-09-08 14:44 | ER ---
Nurse's Notes [facility] Name: Libra Coleman Age: 56 yrs Sex: Female : 1965 Arrival Date: 09/08/2022 Time: 10:39 Bed DX3 Private MD: Shahzad Hollingsworth E Diagnosis: Contusion of left foot Presentation: 09/08 11:34 Chief complaint: Patient states: she had an object fall on her right foot this morning ap3 at approx 0830. patient is complaining of increased pain to the right foot. Coronavirus screen: At this time, the client does not indicate any symptoms associated with coronavirus-19. Ebola Screen: No symptoms or risks identified at this time. Initial Sepsis Screen: Does the patient meet any 2 criteria? No. Patient's initial sepsis screen is negative. Does the patient have a suspected source of infection? No. Patient's initial sepsis screen is negative. Risk Assessment: Do you want to hurt yourself or someone else? Patient reports no desire to harm self or others. Onset of symptoms was September 08, 2022 at 08:30. 11:34 Method Of Arrival: Ambulatory ap3 11:34 Acuity: DEZ 4 ap3 Triage Assessment: 11:35 General: Appears in no apparent distress. Behavior is calm, cooperative, appropriate ap3 for age. Pain: Complains of pain in right foot. Neuro: Level of Consciousness is awake, alert, obeys commands, Oriented to person, place, time, situation. Cardiovascular: Patient's skin is warm and dry. Respiratory: Airway is patent Respiratory effort is even, unlabored, Respiratory pattern is regular, symmetrical. Musculoskeletal: Reports pain in right foot. Historical: - Allergies: 11:35 No Known Allergies; ap3 - PMHx: 11:35 Diabetes - NIDDM; Diverticulitis; High Cholesterol; ap3 - Immunization history:: Client reports receiving the 2nd dose of the Covid vaccine. - Social history:: Smoking status: Patient denies any tobacco usage or history of. Screenin:36 [facility] ED Fall Risk Assessment (Adult) History of falling in the last 3 months, ap3 including since admission No falls in past 3 months (0 pts). Abuse screen: Denies threats or abuse. Nutritional screening: No deficits noted. Tuberculosis screening: No symptoms or risk factors identified. Assessment: 14:38 Reassessment: contacted radiologist about x-ray results, stated will post shortly. . aa5 14:48 Reassessment: Patient is alert, oriented x 3, equal unlabored respirations, skin aa5 warm/dry/pink. Vital Signs: 11:34 BP 152 / 69; Pulse 78; Resp 17; Temp 97.8; Pulse Ox 100% ; Weight 92.53 kg; Pain 9/10; ap3 11:34 Pain Scale: Adult ap3 ED Course: 10:42 Patient arrived in ED. mr 10:42 Shahzad Hollingsworth MD is Private Physician. mr 11:18 Pablo Estevez PA is PHCP. jmm 11:18 Mario Cortes MD is Attending Physician. jmm 11:35 Triage completed. ap3 11:36 Arm band placed on left wrist. ap3 12:45 Foot Right 3 View XRAY In Process Unspecified. EDMS 14:43 Aaron Leonardo DPM is Referral Physician. [facility] 14:49 No provider procedures requiring assistance completed. Patient did not have IV access aa5 during this emergency room visit. Administered Medications: No medications were administered Medication: 11:36 VIS not applicable for this client. ap3 Outcome: 14:43 Discharge ordered by . [facility] 14:48 Discharged to home ambulatory. aa5 14:48 Condition: good 14:48 Discharge instructions given to patient, Instructed on discharge instructions, follow up and referral plans. medication usage, Demonstrated understanding of instructions, follow-up care, medications, Prescriptions given X 1. 14:49 Patient left the ED. aa5 Signatures: Dispatcher [employer] EDMS Pablo Estevez PA PA jmm Jeovanny Beth mr AckermanNaz, RN RN aa5 Flakita Paul RN RN ap3
--- NOTE | 2022-09-08 14:44 | EDPHYS ---
Physician Documentation [facility] Name: Libra Coleman Age: 56 yrs Sex: Female : 1965 Arrival Date: 09/08/2022 Time: 10:39 Bed DX3 Private MD: Shahzad Hollingsworth E ED Physician Mario Cortes HPI: 09/08 11:38 This 56 yrs old Female presents to ER via Ambulatory with complaints of Foot Injury. jmm 11:38 The patient presents with an injury, pain. Onset: The symptoms/episode began/occurred jmm acutely, this morning. This is a 56 year old female with a history of dm, hlp that presents ot the ED with complaints of pain to the right foot when a metal object fell on her foot. Denies other injury. Pain mainly localized to the right 1st mtp region. . Historical: - Allergies: 11:35 No Known Allergies; ap3 - PMHx: 11:35 Diabetes - NIDDM; Diverticulitis; High Cholesterol; ap3 - Immunization history:: Client reports receiving the 2nd dose of the Covid vaccine. - Social history:: Smoking status: Patient denies any tobacco usage or history of. ROS: 11:38 Constitutional: Negative for fever, chills, and weight loss, Cardiovascular: Negative jmm for chest pain, palpitations, and edema, Respiratory: Negative for shortness of breath, cough, wheezing, and pleuritic chest pain. 11:38 MS/extremity: Positive for injury or acute deformity, pain. 11:38 All other systems are negative. Exam: 11:38 Constitutional: This is a well developed, well nourished patient who is awake, alert, jmm and in no acute distress. Head/Face: atraumatic. Eyes: EOMI, no conjunctival erythema appreciated ENT: Moist Mucus Membranes Neck: Trachea midline, Supple Chest/axilla: Normal chest wall appearance and motion. Cardiovascular: Regular rate and rhythm. No edema appreciated Respiratory: Normal respirations, no respiratory distress appreciated Abdomen/GI: Non distended Back: Normal ROM Skin: General appearance color normal 11:38 Musculoskeletal/extremity: ROM: intact in all extremities. 11:38 Skin: Appearance: Color: normal in color. 11:38 Neuro: Motor: is normal. 11:38 Psych: Behavior/mood is pleasant, cooperative. Vital Signs: 11:34 BP 152 / 69; Pulse 78; Resp 17; Temp 97.8; Pulse Ox 100% ; Weight 92.53 kg; Pain 9/10; ap3 11:34 Pain Scale: Adult ap3 MDM: 11:38 Patient medically screened. [facility] 15:16 Differential diagnosis: contusion, fracture. Data reviewed: vital signs, nurses notes, [facility] radiologic studies, plain films. I considered the following discharge prescriptions or medication management in the emergency department Medications were administered in the Emergency Department. See MAR. Independent interpretation of the following test(s) in the Emergency Department X-Ray: My interpretation is no fracture appreciated. Counseling: I had a detailed discussion with the patient and/or guardian regarding: the historical points, exam findings, and any diagnostic results supporting the discharge/admit diagnosis, radiology results, the need for outpatient follow up, to return to the emergency department if symptoms worsen or persist or if there are any questions or concerns that arise at home. 09/08 11:39 Order name: Foot Right 3 View XRAY; Complete Time: 14:42 [facility] Administered Medications: No medications were administered Disposition Summary: 09/08/22 14:43 Discharge Ordered Location: Home [facility] Condition: Stable [facility] Diagnosis - Contusion of left foot [facility] Followup: [facility] - With: Aaron Leonardo DPM - When: 2 - 3 days - Reason: Recheck today's complaints, Continuance of care, Re-evaluation by your physician Discharge Instructions: - Discharge Summary Sheet [facility] - Foot Contusion [facility] Forms: - Work release form jm - Medication Reconciliation Form [facility] - Thank You Letter [facility] - Antibiotic Education [facility] - Prescription Opioid Use [facility] Prescriptions: - Diclofenac Sodium 75 mg Oral Tablet Sustained Release - take 1 tablet by ORAL route 2 times per day; 30 tablet; Refills: 0, Product [facility] Selection Permitted Signatures: Dispatcher [employer] Pablo Clinton PA PA jmm Prokisch, Amanda, RN RN ap3
[2022-09-08 15:09] VITALS: BP 152/69; TEMP 97.8; O2SAT 100
== END 2022-09-08 14:49 | disposition home or self-care (01) ==
LOC: ER 10:39
DX: S90.31XA Contusion of right foot, initial encounter (principal)
CPT/HCPCS: 99283

== ENCOUNTER 2023-09-15 01:50 | Emergency (ER) | payer BC, OTHER ==
--- OUTSIDE RECORDS SUMMARY | 2023-09-15 01:52 | XMS REPORT | Continuity of Care Document ---
Author Name Unknown Address [address] [facility] [address] [place] [address] [facility] thconnect Address [address] [facility] [place] [address] Care Team Providers Care Staffing Associate Name Role Phone NiurkasylvainAaron Ravin Primary Care Physician [phone] [email or web address]_S Attending Clinician Unavaila ble Radiology Attending Clinician Unavailable RADIOLOGY Attending Clinician Unavailable Doctor Unassigned, Nitro Attending Clinician U isabella De Los Santos RN, Josephine Zhang Attending Clinician Unavailab le Only, Adc Test Attending Clinician Unavailable Keegan Gottlieb MD Attending Clinician [phone] KEEGAN GOTTLIEB Attending Clinician Unavailable UNKNOWN, ATTENDING Attending Clinician Unavailab le [email or web address]_S Admitting Clinician Unavaila ble Payers Payer Name Policy Type Policy Number Effective Date Expirati on Date Source [place] [id number] 2023 00:00:00 [employer] - CHOICE (POS II) [id number] 2019 00:00:00 Problems Condition Name Condition Details Condition Category Status Onset Date Resolution Date Last Treatment Date Treating Clinician Comments Source Type 2 diabetes mellitus Type 2 Diabetes Mellitus Problem Active 2022-05 00:00: 00 [facility] Vitamin D deficiency Vitamin D Deficiency Problem Active 2022-05 00:00: 00 [facility] Anxiety disorder Anxiety Disorder Problem Active 2022-05 00:00: 00 [facility] Depressive disorder Depressive Disorder Problem Active 2022-05 00:00: 00 [facility] Insomnia Insomnia Problem Active 2022-05 00:00: 00 [facility] Menopausal syndrome Menopausal Syndrome Problem Active 2022-05 00:00: 00 [facility] Joint pain Joint Pain Problem Active 2022-05 00:00: 00 [facility] Fatigue Fatigue Problem Active 2022-05 00:00: 00 [facility] Atypical squamous cells of undetermin ed significan ce on cervical Papanicola ou smear Atypical Squamous Cells of Undetermin ed Significan ce on Cervical Papanicola ou Smear Problem Active 2022-05 00:00: 00 [facility] Reduced libido Reduced Libido Problem Active 2022-05 00:00: 00 [facility] Atrophic vaginitis Atrophic Vaginitis Problem Active 1 00:00: 00 [facility] Cyst of right ovary Cyst of Right Ovary Problem Active 7 00:00: 00 [facility] Simple obesity Simple Obesity Problem Active 7 00:00: 00 [facility] Body mass index 30+ - obesity Body Mass Index 30+ - Obesity Problem Active 707 00:00: 00 [facility] Postmenopa usal bleeding Postmenopa usal Bleeding Problem Active 10-25 00:00: 00 [facility] Screening mammograph y Screening Mammograph y Problem Active 6 00:00: 00 [facility] Hyperglyce alex due to type 2 diabetes mellitus Hyperglyce alex Due to Type 2 Diabetes Mellitus Problem Active 10-25 00:00: 00 [facility] Irregular periods Irregular Periods Problem Active 6- 00:00: 00 [facility] Allergies, Adverse Reactions, Alerts Allergy Name Allergy Type Status Severity Reaction(s) Onset Date Inactive Date Treating Clinician Comments Source NO KNOWN ALLERGIE S Drug Class Active [facility] Social History Social Habit Start Date Stop Date Quantity Comments Source Sexual orientation U [facility] Exposure to SARS-CoV-2 (event) 2020-08-01 00:00:00 2020-08-31 16:13:00 Not sure [facility] Sex Assigned At 1965 00:00:00 1965 00:00:00 [facility] Smoking Status Start Date Stop Date Source Never Smoker [facility] Tobacco smoking consumption unknown [facility] Medications Ordered Medication Name Filled Medication Name Start Date Stop Date Current Medication? Ordering Clinician Indication Dosage Frequency Signature (SIG) Comments Components Source testosteron e 100 mg implant pelletTake 1 pellet by implantatio n route. testosteron e 100 mg implant pelletTake 1 pellet by implantatio n route. 08-18 13:59: 49 No 1pellet (s) testostero ne 100 mg implant pelletTake 1 pellet by implantati on route. [facility] - estradiol 15mg pellet1 [facility] - estradiol 15mg pellet1 08-18 13:59: 06 No [facility] - estradiol 15mg pellet1 [facility] - testosteron e 37.5mg pellet1 [facility] - testosteron e 37.5mg pellet1 08-18 13:58: 24 No [facility] - testostero ne 37.5mg pellet1 [facility] [place] Thyroid 30 mg tablet Take 1 tablet every day by oral route for 90 days. [facility] Thyroid 30 mg tablet Take 1 tablet every day by oral route for 90 days. No 1 Q1D [facility] Thyroid 30 mg tablet Take 1 tablet every day by oral route for 90 days. [facility] - estradiol 15mg pellet estradiol 15mg pellet 1 [facility] [id number] [facility] - estradiol 15mg pellet estradiol 15mg pellet 1 [facility] [id number] No [facility] - estradiol 15mg pellet estradiol 15mg pellet 1 [facility] [id number] 1 [facility] - testosteron e 37.5mg pellet testosteron e 37.5mg pellet 1 [facility] [id number] [facility] - testosteron e 37.5mg pellet testosteron e 37.5mg pellet 1 [facility] [id number] No [facility] - testostero ne 37.5mg pellet testostero ne 37.5mg pellet 1 [facility] [id number] 1 [facility] methylpredn isolone 4 mg tablets in a dose pack TAKE DIRECTED BY PACKAGE INSTRUCTION S. methylpredn isolone 4 mg tablets in a dose pack TAKE DIRECTED BY PACKAGE INSTRUCTION S. No methylpred nisolone 4 mg tablets in a dose pack TAKE DIRECTED BY PACKAGE INSTRUCTIO NS. [facility] sulfamethox azole 800 mg-trimetho prim 160 mg tablet TAKE ONE (1) TABLET(S) BY MOUTH TWICE A DAY FOR SEVEN DAYS. sulfamethox azole 800 mg-trimetho prim 160 mg tablet TAKE ONE (1) TABLET(S) BY MOUTH TWICE A DAY FOR SEVEN DAYS. No sulfametho xazole 800 mg-trimeth oprim 160 mg tablet TAKE ONE (1) TABLET(S) BY MOUTH TWICE A DAY FOR SEVEN DAYS. [facility] [place] Thyroid 60 mg tablet TAKE ONE (1) TABLET(S) BY MOUTH ONCE A DAY. [facility] Thyroid 60 mg tablet TAKE ONE (1) TABLET(S) BY MOUTH ONCE A DAY. No [facility] Thyroid 60 mg tablet TAKE ONE (1) TABLET(S) BY MOUTH ONCE A DAY. [facility] atorvastati n 20 mg tablet TAKE ONE (1) TABLET(S) BY MOUTH ONCE A DAY. atorvastati n 20 mg tablet TAKE ONE (1) TABLET(S) BY MOUTH ONCE A DAY. No atorvastat in 20 mg tablet TAKE ONE (1) TABLET(S) BY MOUTH ONCE A DAY. [facility] famotidine 40 mg tablet TAKE ONE (1) TABLET(S) BY MOUTH ONCE A DAY. famotidine 40 mg tablet TAKE ONE (1) TABLET(S) BY MOUTH ONCE A DAY. No famotidine 40 mg tablet TAKE ONE (1) TABLET(S) BY MOUTH ONCE A DAY. [facility] lisinopril 2.5 mg tablet TAKE ONE (1) TABLET(S) BY MOUTH ONCE A DAY. lisinopril 2.5 mg tablet TAKE ONE (1) TABLET(S) BY MOUTH ONCE A DAY. No lisinopril 2.5 mg tablet TAKE ONE (1) TABLET(S) BY MOUTH ONCE A DAY. [facility] metformin ER 500 mg tablet,exte nded release 24 hr TAKE TWO (2) TABLET(S) BY MOUTH TWICE A DAY WITH MEALS. metformin ER 500 mg tablet,exte nded release 24 hr TAKE TWO (2) TABLET(S) BY MOUTH TWICE A DAY WITH MEALS. No metformin ER 500 mg tablet,ext ended release 24 hr TAKE TWO (2) TABLET(S) BY MOUTH TWICE A DAY WITH MEALS. [facility] montelukast 10 mg tablet TAKE ONE (1) TABLET(S) BY MOUTH ONCE A DAY. montelukast 10 mg tablet TAKE ONE (1) TABLET(S) BY MOUTH ONCE A DAY. No montelukas t 10 mg tablet TAKE ONE (1) TABLET(S) BY MOUTH ONCE A DAY. [facility] Mounjaro 5 mg/0.5 mL subcutaneou s pen injector INJECT 5MG UNDER THE SKIN ONCE WEEKLY. Mounjaro 5 mg/0.5 mL subcutaneou s pen injector INJECT 5MG UNDER THE SKIN ONCE WEEKLY. No Mounjaro 5 mg/0.5 mL subcutaneo us pen injector INJECT 5MG UNDER THE SKIN ONCE WEEKLY. [facility] paroxetine 10 mg tablet TAKE ONE (1) TABLET(S) BY MOUTH ONCE A DAY IN THE MORNING. paroxetine 10 mg tablet TAKE ONE (1) TABLET(S) BY MOUTH ONCE A DAY IN THE MORNING. No paroxetine 10 mg tablet TAKE ONE (1) TABLET(S) BY MOUTH ONCE A DAY IN THE MORNING. [facility] progesteron e micronized 100 mg capsule TAKE 1 CAPSULE BY MOUTH EVERY DAY progesteron e micronized 100 mg capsule TAKE 1 CAPSULE BY MOUTH EVERY DAY No progestero ne micronized 100 mg capsule TAKE 1 CAPSULE BY MOUTH EVERY DAY [facility] estradiol 10 mg implant pellet Take 1 pellet by implantatio n route. ND: [id number] estradiol 10 mg implant pellet Take 1 pellet by implantatio n route. ND: [id number] No 1pellet (s) estradiol 10 mg implant pellet Take 1 pellet by implantati on route. ND: [id number] 1 [facility] Vital Signs Vital Name Observation Time Observation Value Comments S ource BMI (Body Mass Index) 2023-07-07 00:00:00 31.4 kg/m2 [facility] Height 2023-07-07 00:00:00 64 [in_i] [facility] Body Weight 2023-07-07 00:00:00 183 [lb_av] [facility] Procedures Procedure Date / Time Performed Performing Clinician Source Hysteroscopy 2020-11-07 00:00:00 Bev Rene edical US ABDOMEN LIMITED 2020-08-31 22:02:35 Requisition, Pa per [facility] ASSIGNMENT OF BENEFITS 2020-08-31 21:12:38 Docto r Unassigned, Nitro [facility] ASSIGNMENT OF BENEFITS 2020-02-21 20:18:20 Jose breaux Unassigned, Nitro [facility] Ligation of Fallopian Tube 1997-05-04 00:00:00 [facility] Medical Encounters Start Date/Time End Date/Time Encounter Type Admission Type Attending [facility] Care Department Encounter ID Source 2023-08-19 00:00:00 2023-08-19 00:00:00 Natalia Gilman, [employer] WORKER: [address], [place] [address] , Ph. [facility] - GC_GCBZW_Bertha Benitez* [id number] [facility] 2023-08-11 00:00:00 2023-08-11 00:00:00 Outpatient GC_GCBZW_Ka diyala_S PRIV PRIV [id number] [facility] 2023-07-07 00:00:00 2023-07-07 00:00:00 Outpatient GC_GCBZW_Ka diyala_S PRIV PRIV [id number] [facility] 2023-07-07 00:00:00 2023-07-07 00:00:00 RADHA RobledoP: [address], [place] [address] , Ph. [facility] - GC_GCBZW_Bertha Benitez* [id number] [facility] 2023-07-03 00:00:00 2023-07-03 00:00:00 Outpatient GC_GCBZW_Ka diyala_S PRIV PRIV [id number] [facility] 2023-06-30 00:00:00 2023-06-30 00:00:00 Outpatient GC_GCBZW_Ka diyala_S PRIV PRIV [id number] [facility] 2023-05-27 00:00:00 2023-05-27 00:00:00 Outpatient GC_GCBZW_Ka diyala_S PRIV PRIV [id number] [facility] 2023-05-26 00:00:00 2023-05-26 00:00:00 Outpatient GC_GCBZW_Ka diyala_S PRIV PRIV [id number] [facility] 2023-05-19 00:00:00 2023-05-19 00:00:00 Outpatient GC_GCBZW_Ka diyala_S PRIV PRIV [id number] [facility] 2023-05-11 00:00:00 2023-05-11 00:00:00 Outpatient GC_GCBZW_Ka diyala_S PRIV PRIV [id number] [facility] 2023-05-01 00:00:00 2023-05-01 00:00:00 Outpatient GC_GCBZW_Ka diyala_S PRIV PRIV [id number] [facility] 2023-04-24 00:00:00 2023-04-24 00:00:00 Outpatient GC_GCBZW_Ka diyala_S PRIV PRIV [id number] [facility] 2023-03-01 00:00:00 2023-03-01 00:00:00 Outpatient GC_GCBZW_Ka diyala_S PRIV PRIV [id number] [facility] 2020-08-31 16:13:21 2020-08-31 23:59:00 Hospital Encounter Radiology [facility] 1..840.114 350.1.13.10 4.2.7.2.686 [id number] [facility] 2020-08-31 00:00:00 2020-08-31 00:00:00 Outpatient R RADIOLOGY [facility] [id number] [facility] 2020-08-31 00:00:00 2020-08-31 00:00:00 Orders Only Doctor Unassigned, Nitro [facility] 1..840.114 350.1.13.10 4.2.7.2.686 [id number] [facility] 2020-07-29 10:50:00 2020-07-29 10:50:00 Outpatient [facility] [id number] [facility] 2020-07-01 11:00:00 2020-07-01 11:00:00 Outpatient [facility] [id number] [facility] 2020-02-23 00:00:00 2020-02-23 00:00:00 Letter (Out) Josephine De Los Santos [facility] 1.2840.114 350.1.13.10 4.2.7.2.686 [id number] [facility] 2020-02-23 00:00:00 2020-02-23 00:00:00 Patient Secure Msg Doctor Unassigned, Nitro [facility] 1.2840.114 350.1.13.10 4.2.7.2.686 [id number] [facility] 2020-02-21 15:20:17 2020-02-21 15:35:17 Laboratory Only Only, Adc Test GottliebKeegan ceballos [facility] 1.2840.114 350.1.13.10 4.2.7.2.686 [id number] [facility] 2020-02-21 15:15:00 2020-02-21 15:15:00 Outpatient R EMMA GOTTLIEBAK [facility] [id number] [facility] 2020-02-21 00:00:00 2020-02-21 00:00:00 Orders Only Doctor Unassigned, Nitro [facility] 1.2840.114 350.1.13.10 4.2.7.2.686 [id number] [facility] 2019-11-14 15:30:00 2019-11-14 16:50:25 Outpatient R UNKNOWN, ATTENDING [facility] [id number] [facility] Results Test Description Test Time Test Comments Results Result Co mments Source [facility] [Mass/volume] in Serum or [id number] 00:00:00 * Test Item Value Reference Range Interpretation Comme nts estradiol (test code = estradiol) 60.0 pg/mL 6.1-91.9 [facility]ollitropin [Units/volume] in Serum or [id number] 00:00:00* Test Item Value Reference Range Interpretation Comme nts FSH (test code = FSH) 29.9 mIU/mL [facility]yrotropin [Units/volume] in Serum or [id number] 00:00:00* Test Item Value Reference Range Interpretation Comme nts TSH (test code = TSH) 0.088 uIU/mL 0.178-4.530 L [facility]iodothyronine (T3) Free [Mass/volume] in Serum or Plasma 2023-07-01 00:00:00* Test Item Value Reference Range Interpretation Comme nts free T3 (test code = free T3) 3.5 pg/mL 2.0-4.7 [facility] free and total panel [Mass/volume] - Serum or Plasma 2023-07-01 00:00:00* Test Item Value Reference Range Interpretation Comme nts free testosterone (test code = free testosterone) 3.16 NG/dL 0.12-0.64 H sex hormone binding globulin (test code = sex hormone binding globulin) 65.70 nmol/L 10.00-57.00 H testosterone (test code = testosterone) 261.0 NG/dL 8.4-48.1 H [facility]stradiol (E2) [Mass/volume] in Serum or [id number] 00:00:00 * Test Item Value Reference Range Interpretation Comme nts estradiol (test code = estradiol) 60.0 pg/mL 6.1-91.9 [facility]in [Units/volume] in Serum or [id number] 00:00:00* Test Item Value Reference Range Interpretation Comme nts FSH (test code = FSH) 29.9 mIU/mL [facility]rotropin [Units/volume] in Serum or [id number] 00:00:00* Test Item Value Reference Range Interpretation Comme nts TSH (test code = TSH) 0.088 uIU/mL 0.178-4.530 L [facility]iodothyronine (T3) Free [Mass/volume] in Serum or Plasma 2023-07-01 00:00:00* Test Item Value Reference Range Interpretation Comme nts free T3 (test code = free T3) 3.5 pg/mL 2.0-4.7 [facility]osterone free and total panel [Mass/volume] - Serum or Plasma 2023-07-01 00:00:00* Test Item Value Reference Range Interpretation Comme nts free testosterone (test code = free testosterone) 3.16 NG/dL 0.12-0.64 H sex hormone binding globulin (test code = sex hormone binding globulin) 65.70 nmol/L 10.00-57.00 H testosterone (test code = testosterone) 261.0 NG/dL 8.4-48.1 H [facility]stradiol (E2) [Mass/volume] in Serum or [id number] 00:00:00 * Test Item Value Reference Range Interpretation Comme nts estradiol (test code = estradiol) 60.0 pg/mL 6.1-91.9 [facility]ollitropin [Units/volume] in Serum or [id number] 00:00:00* Test Item Value Reference Range Interpretation Comme nts FSH (test code = FSH) 29.9 mIU/mL [facility]rotropin [Units/volume] in Serum or [id number] 00:00:00* Test Item Value Reference Range Interpretation Comme nts TSH (test code = TSH) 0.088 uIU/mL 0.178-4.530 L [facility]iodothyronine (T3) Free [Mass/volume] in Serum or Plasma 2023-07-01 00:00:00* Test Item Value Reference Range Interpretation Comme nts free T3 (test code = free T3) 3.5 pg/mL 2.0-4.7 [facility] ABDOMEN [id number] 22:18:58Moderate hepatic steatosis.US ABDOMEN LIMITED 08/31/2020 4:42 PM HISTORY: Abdominal [...] is unremarkable. SPLEEN: Normal echogenicity measuring 11 cm.AORTA: The proximal aorta measures 2.0 cm in diameter. [facility], Radiant Results Inft User - 08/31/2020 5:20 [...] Normal echogenicity measuring 11 cm.AORTA: The proximal ao rta measures 2.0 cm in diameter.IMPRESSION Moderate hepatic steatosis.[facility]
[2023-09-15] MEDS ORDERED: NA CHLORIDE 0.9% 1,000 ML ONE (02:57)
[2023-09-15] MEDS ORDERED: ONDANSETRON 4 MG/2 ML VIAL ONE (02:57)
[2023-09-15] MEDS ORDERED: KETOROLAC 30 MG/ML INJ ONE (02:57)
[2023-09-15] MEDS ORDERED: MORPHINE 4 MG/ML SYR ONE ×2 (02:57→05:23)
[2023-09-15 03:19] LABS: Specific Gravity 1.015 (1.005-1.030); Urine Bacteria <20 /HPF (<20); Urine Bilirubin NEGATIVE (Negative); Urine Blood 1+ (Negative); Urine Clarity Extremely Turbid (Clear); Urine Color Light-Yellow (Yellow); Urine Culture Reflex Order REFLEXED; Urine Glucose NEGATIVE (Negative); Urine Ketones NEGATIVE (Negative); Urine Micro Reflex YN NO BILL MICROSCOPIC; Urine Mucus Slight /HPF (None Seen); Urine Nitrite NEGATIVE (Negative); Urine Protein TRACE (Negative); Urine RBC 21-50 /HPF (None Seen); Urine Urobilinogen Normal (Normal)
[2023-09-15 03:23] LABS: Absolute Basophils 0.1 K/uL (0-0.5); Absolute Eosinophils 0.2 K/uL (0-0.5); Absolute Lymphocytes (CBC) 2.4 K/uL (0.7-4.9); Absolute Monocytes 1.1 K/uL (0.1-1.3); Absolute Neutrophil 10.4 K/uL (1.8-8.0); Basophils % 0.4 % (0-1.3); Eosinophils % 1.3 % (0-4.4); Hematocrit 37.7 % (36.0-45.0); Hemoglobin 12.9 g/dL (12.0-15.0); Lymphocytes % 16.8 % (15.3-44.8); MCH 29.5 pg (27.0-35.0); MCHC 34.2 g/dL (32.0-36.0); MCV 86.3 fL (80-100); MPV 7.1 fL (7.6-11.3); Monocytes % 7.6 % (3.3-12.3); Neutrophils % 73.9 % (41.7-73.7); Nucleated Red Blood Cells % 0.1 % (0-0); Platelets 364 thou/uL (152-406); RBC Red Blood Cell Count 4.37 M/uL (3.86-4.86); Red Cell Distribution Width 13.5 % (12.1-15.2)
[2023-09-15 03:33] LABS: Albumin 3.3 g/dL (3.4-5.0); Anion Gap 6.9 mEq/L (5.0-15.0); Bilirubin Total 0.4 mg/dL (0.2-1.0); Globulin 3.2 g/dL (2.3-3.5); Potassium 3.9 mEq/L (3.5-5.1); Protein, Total 6.5 g/dL (6.4-8.2)
[2023-09-15] MEDS ORDERED: METRONIDAZOLE 500mg IVPB 500 MG/100 ML BAG IV ONE (04:47)
[2023-09-15] MEDS ORDERED: NA CHLORIDE 0.9% 50 ML ONE (04:47)
[2023-09-15] MEDS ORDERED: CEFTRIAXONE 1000 MG/VIAL ONE (04:47)
[2023-09-15] MEDS ORDERED: METOCLOPRAMIDE 10 MG/2mL INJ ONE (05:23)
--- NOTE | 2023-09-15 05:53 | ER ---
Nurse's Notes [facility] Name: Libra Coleman Age: 57 yrs Sex: Female : 1965 Arrival Date: 09/15/2023 Time: 01:50 Bed 13 Private MD: Diagnosis: Diverticulitis of large intestine without perforation or abscess without bleeding;Left kidney stone, acute descending colon diverticulitis Presentation: 09/14 02:03 Chief complaint: Patient states: left sided lower abdominal pain. HX of diverticulitis. lg3 Coronavirus screen: Client denies travel out of the [place] in the last 14 days. At this time, the client does not indicate any symptoms associated with coronavirus-19. Ebola Screen: No symptoms or risks identified at this time. Initial Sepsis Screen: Does the patient meet any 2 criteria? No. Patient's initial sepsis screen is negative. Does the patient have a suspected source of infection? No. Patient's initial sepsis screen is negative. Risk Assessment: Do you want to hurt yourself or someone else? Patient reports no desire to harm self or others. Onset of symptoms was September 14, 2023. 02:03 Method Of Arrival: Ambulatory lg3 02:03 Acuity: DEZ 3 lg3 Triage Assessment: 02:04 General: Appears in no apparent distress. comfortable, Behavior is calm, cooperative. lg3 Pain: Complains of pain in left lower quadrant Pain does not radiate. EENT: No deficits noted. No signs and/or symptoms were reported regarding the EENT system. Neuro: No deficits noted. Hernandez Agitation-Sedation Scale (RASS): 0 - Alert and Calm Level of Consciousness is awake, alert, obeys commands, Oriented to person, place, time, situation. Cardiovascular: No deficits noted. Denies chest pain, shortness of breath, Capillary refill < 3 seconds Clubbing of nail beds is absent JVD is absent Patient's skin is warm and dry. Respiratory: No deficits noted. Airway is patent Respiratory effort is even, unlabored, Respiratory pattern is regular, symmetrical. GI: Abdomen is round non-distended, Bowel sounds present X 4 quads. Abd is soft X 4 quads Abdomen is tender to palpation in left lower quadrant Reports lower abdominal pain. : No deficits noted. No signs and/or symptoms were reported regarding the genitourinary system. Derm: No deficits noted. No signs and/or symptoms reported regarding the dermatologic system. Skin is intact, is healthy with good turgor, Skin is dry, Skin is normal, Skin temperature is warm. Musculoskeletal: No deficits noted. No signs and/or symptoms reported regarding the musculoskeletal system. Circulation, motion, and sensation intact. Range of motion: intact in all extremities. 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 N/A - Post-menopause, Not lg3 Historical: - Allergies: 02:04 No Known Allergies; lg3 - Home Meds: 02:04 HRT complete [Active]; [place] Thyroid 30 mg Oral tablet daily [Active]; paroxetine HCl lg3 10 mg oral tablet daily [Active]; progesterone micronized 200 mg oral capsule daily [Active]; atorvastatin 20 mg oral tablet daily [Active]; lisinopril 2.5 mg Oral tablet daily [Active]; metformin 500 mg oral tablet 2 times per day [Active]; Mounjaro 2.5 mg/0.5 mL subcutaneous Pen Injector every week [Active]; - PMHx: 02:04 Diabetes - NIDDM; Diverticulitis; High Cholesterol; HTN (High Cholesterol); lg3 - PSHx: 02:04 Ligation of fallopian tube; lg3 - Immunization history:: Adult Immunizations up to date, Client reports receiving the 2nd dose of the Covid vaccine, Flu vaccine is up to date. - Infectious Disease History:: Denies. - Social history:: Smoking status: Patient denies any tobacco usage or history of. Patient uses alcohol, weekly. Patient/guardian denies using street drugs. - Family history:: not pertinent. Screenin:10 [facility] ED Fall Risk Assessment (Adult) History of falling in the last 3 months, lg3 including since admission No falls in past 3 months (0 pts) Confusion or Disorientation No (0 pts) Intoxicated or Sedated No (0 pts) Impaired Gait No (0 pts) Mobility Assist Device Used No (0 pt) Altered Elimination No (0 pt) Score/Fall Risk Level 0 - 2 = Low Risk Oriented to surroundings, Maintained a safe environment, Educated pt \T\ family on fall prevention, incl call for assistance when getting out of bed, Assessed \T\ reinforced patient's understanding of fall precautions. Abuse screen: Denies threats or abuse. Denies injuries from another. Nutritional screening: No deficits noted. Tuberculosis screening: No symptoms or risk factors identified. Assessment: 02:10 General: see triage assessment. lg3 02:10 General: Appears in no apparent distress. comfortable, well groomed, well developed, pf1 Behavior is calm, cooperative, appropriate for age, quiet. 02:10 Pain: Complains of pain in abdomen and left lower quadrant Pain began 1 day ago. Neuro: pf1 No deficits noted. Level of Consciousness is awake, alert, obeys commands, Oriented to person, place, time, situation. Cardiovascular: No deficits noted. Capillary refill < 3 seconds Patient's skin is warm and dry. Respiratory: No deficits noted. Airway is patent Respiratory effort is even, unlabored, Respiratory pattern is regular, symmetrical, Breath sounds are clear bilaterally. GI: Abdomen is round non-distended, Bowel sounds present X 4 quads. Reports lower abdominal pain. : No deficits noted. No signs and/or symptoms were reported regarding the genitourinary system. EENT: No deficits noted. No signs and/or symptoms were reported regarding the EENT system. Derm: No deficits noted. No signs and/or symptoms reported regarding the dermatologic system. 03:00 Reassessment: Patient appears in no apparent distress at this time. Patient and/or pf1 family updated on plan of care and expected duration. Pain level reassessed. Patient is alert, oriented x 3, equal unlabored respirations, skin warm/dry/pink. Patient states symptoms have improved. 04:00 Reassessment: Patient appears in no apparent distress at this time. Patient and/or pf1 family updated on plan of care and expected duration. Pain level reassessed. Patient is alert, oriented x 3, equal unlabored respirations, skin warm/dry/pink. Patient states symptoms have improved. 04:55 Reassessment: Patient appears in no apparent distress at this time. Patient and/or pf1 family updated on plan of care and expected duration. Pain level reassessed. Patient is alert, oriented x 3, equal unlabored respirations, skin warm/dry/pink. 05:25 Reassessment: Patient appears in no apparent distress at this time. Patient and/or pf1 family updated on plan of care and expected duration. Pain level reassessed. Patient is alert, oriented x 3, equal unlabored respirations, skin warm/dry/pink. Patient states feeling better. Patient states symptoms have improved. Vital Signs: 02:03 BP 163 / 88; Pulse 90; Resp 17 S; Temp 98.7(O); Pulse Ox 99% on R/A; Weight 85.73 kg lg3 (R); Height 5 ft. 4 in. (R); Pain 10/10; 03:00 BP 112 / 89; Pulse 77; Resp 16; Pulse Ox 98% on R/A; pf1 04:00 BP 111 / 59; Pulse 71; Resp 16; Pulse Ox 97% on R/A; Pain 7/10; pf1 04:55 BP 117 / 74; Pulse 78; Resp 16; Pulse Ox 99% on R/A; Pain 6/10; pf1 05:26 BP 122 / 63; Pulse 79; Resp 16; Pulse Ox 97% on R/A; Pain 6/10; pf1 02:03 Body Mass Index 32.44 (85.73 kg, 162.56 cm) lg3 02:03 Pain Scale: Adult lg3 04:00 Pain Scale: Adult pf1 04:55 Pain Scale: Adult pf1 05:26 Pain Scale: Adult pf1 Brohman Coma Score: 04:58 Eye Response: spontaneous(4). Motor Response: obeys commands(6). Verbal Response: sp4 oriented(5). Total: 15. ED Course: 01:53 Patient arrived in ED. ra3 02:03 Michael Jurado MD is Attending Physician. sp4 02:04 Triage completed. lg3 02:04 Arm band placed on right wrist. lg3 02:10 Patient has correct armband on for positive identification. lg3 02:20 Door closed. Noise minimized. Moved to private room. Warm blanket given. Pillow given. pf1 02:35 Initial lab(s) drawn, by ED staff, sent to lab. pf1 02:40 No provider procedures requiring assistance completed. Inserted saline lock: 22 gauge pf1 in right forearm, using aseptic technique. 03:05 Lab(s) recollected, by ED staff, sent to lab. pf1 03:08 Urinalysis W/Microscopic Sent. oe 04:05 CT Abd/Pelvis - IV Contrast Only In Process Unspecified. EDMS 05:51 Ian Gonzalez MD is Referral Physician. sp4 05:58 Baldwin, Taylor, RN is Primary Nurse. ha1 05:59 IV discontinued, intact, bleeding controlled, No redness/swelling at site. Pressure ha1 dressing applied. Administered Medications: 03:03 Not Given (Duplicate Order): [id number] mg IVP once pf1 03:10 Drug: morphine IVP or IV 4 mg IVP once over 4 mins Route: IVP; Infused Over: 4 mins; pf1 Site: right forearm; 04:00 Follow up: Response: No adverse reaction; No change in condition; Pain is decreased; pf1 RASS: Alert and Calm (0) 03:10 Drug: NS 0.9% IV 1000 ml IV at 1 bolus Per protocol; 1000 mL bolus Route: IV; Rate: 1 pf1 bolus; Site: right forearm; 04:00 Follow up: Response: No adverse reaction; Marked relief of symptoms; IV Status: pf1 Completed infusion; IV Intake: 1000ml 03:10 Drug: Ondansetron IVP 4 mg IVP once; over 2 minutes Route: IVP; Site: right forearm; pf1 04:00 Follow up: Response: No adverse reaction; Marked relief of symptoms pf1 03:10 Drug: Ketorolac IVP 30 mg IVP once Route: IVP; Site: right forearm; pf1 04:00 Follow up: Response: No adverse reaction; Marked relief of symptoms; Pain is decreased pf1 04:52 Drug: Rocephin - Rocephin (cefTRIAXone) IVPB 1 grams IVPB once over 30 mins; (mix in 50 pf1 mL NS) Route: IVPB; Infused Over: 30 mins; Site: right forearm; 05:22 Follow up: Response: No adverse reaction; Marked relief of symptoms; IV Status: pf1 Completed infusion; IV Intake: 50ml 05:25 Drug: metroNIDAZOLE IVPB 500 mg 100 ml IVPB at 200 ml/hr once over 30 mins Volume: 100 pf1 ml; Route: IVPB; Rate: 200 ml/hr; Infused Over: 30 mins; Site: right forearm; 05:59 Follow up: Response: No adverse reaction; IV Status: Completed infusion; IV Intake: ha1 100ml 05:27 Drug: morphine IVP or IV 4 mg IVP once over 4 mins Route: IVP; Infused Over: 4 mins; pf1 Site: right forearm; 05:59 Follow up: Response: No adverse reaction ha1 05:27 Drug: metoCLOPramide IVP 10 mg IVP once; over 1 to 2 minutes Route: IVP; Site: right pf1 forearm; 05:59 Follow up: Response: No adverse reaction ha1 Medication: 05:59 VIS not applicable for this client. ha1 Intake: 04:00 IV: 1000ml; Total: 1000ml. pf1 05:22 IV: 50ml; Total: 1050ml. pf1 05:59 IV: 100ml; Total: 1150ml. ha1 Outcome: 05:53 Discharge ordered by . sp4 05:58 Discharged to home ambulatory, ha1 05:58 Condition: stable 05:58 Discharge instructions given to patient, Instructed on discharge instructions, follow up and referral plans. medication usage, Demonstrated understanding of instructions, follow-up care, medications, Prescriptions given X 5 06:00 Patient left the ED. ha1 Signatures: Dispatcher [employer] EDMS Humberto Erickson Lacie, RN RN lg3 Taylor Baldwin RN RN ha1 Ronit Torres RN RN pf1 Michael Jurado MD MD sp4 Michelle Tejada 3
--- NOTE | 2023-09-15 05:54 | EDPHYS ---
Physician Documentation [facility] Name: Libra Coleman Age: 57 yrs Sex: Female : 1965 Arrival Date: 09/15/2023 Time: 01:50 Bed 13 Private MD: ED Physician Michael Jurado HPI: 09/14 02:04 This 57 yrs old Other Female presents to ER via Unassigned with complaints of side pain.sp4 04:58 57 -year-old female presents with acute abdominal pain left lower quadrant associated sp4 with nausea. Patient reports similar pain in the past with diverticulitis. . 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 N/A - Post-menopause, Not lg3 Historical: - Allergies: 02:04 No Known Allergies; lg3 - Home Meds: 02:04 HRT complete [Active]; [place] Thyroid 30 mg Oral tablet daily [Active]; paroxetine HCl lg3 10 mg oral tablet daily [Active]; progesterone micronized 200 mg oral capsule daily [Active]; atorvastatin 20 mg oral tablet daily [Active]; lisinopril 2.5 mg Oral tablet daily [Active]; metformin 500 mg oral tablet 2 times per day [Active]; Mounjaro 2.5 mg/0.5 mL subcutaneous Pen Injector every week [Active]; - PMHx: 02:04 Diabetes - NIDDM; Diverticulitis; High Cholesterol; HTN (High Cholesterol); lg3 - PSHx: 02:04 Ligation of fallopian tube; lg3 - Immunization history:: Adult Immunizations up to date, Client reports receiving the 2nd dose of the Covid vaccine, Flu vaccine is up to date. - Infectious Disease History:: Denies. - Social history:: Smoking status: Patient denies any tobacco usage or history of. Patient uses alcohol, weekly. Patient/guardian denies using street drugs. - Family history:: not pertinent. ROS: 04:58 Constitutional: Negative for fever, chills, and weight loss, positive left lower sp4 abdominal pain associated with nausea 04:58 All other systems are negative, Exam: 04:58 Constitutional: This is a well developed, well nourished patient who is awake, alert, sp4 and in no acute distress. Head/Face: Normocephalic, atraumatic. Eyes: Pupils equal round and reactive to light, extra-ocular motions intact. Lids and lashes normal. Conjunctiva and sclera are not injected. Cornea within normal limits. Periorbital areas with no swelling, redness, or edema. ENT: Nares patent. No nasal discharge, no septal abnormalities noted. Tympanic membranes are normal and external auditory canals are clear. Oropharynx with no redness, swelling, or masses, exudates, or evidence of obstruction, uvula midline. Mucous membranes moist. Neck: Trachea midline, no thyromegaly or masses palpated, and no cervical lymphadenopathy. Supple, full range of motion without nuchal rigidity, or vertebral point tenderness. Chest/axilla: Normal chest wall appearance and motion. Nontender with no deformity. No lesions are appreciated. Cardiovascular: Regular rate and rhythm with a normal S1 and S2. No gallops, murmurs, or rubs. Normal PMI, no JVD. No pulse deficits. Respiratory: Lungs have equal breath sounds bilaterally, clear to auscultation and percussion. No rales, rhonchi or wheezes noted. No increased work of breathing, no retractions or nasal flaring. Abdomen/GI: Soft, with normal bowel sounds. No distension or tympany. Positive left lower abdominal tenderness with rebound Back: No spinal tenderness. No costovertebral tenderness. Skin: Warm, dry with normal turgor. Normal color with no rashes, no lesions, and no evidence of cellulitis. MS/ Extremity: Pulses equal, no cyanosis. Neurovascular intact. Full, normal range of motion. Neuro: Awake and alert, GCS 15, oriented to person, place, time, and situation. Cranial nerves II-XII grossly intact. Motor strength 5/5 in all extremities. Sensory grossly intact. Psych: Awake, alert, with orientation to person, place and time. Behavior, mood, and affect are within normal limits Vital Signs: 02:03 BP 163 / 88; Pulse 90; Resp 17 S; Temp 98.7(O); Pulse Ox 99% on R/A; Weight 85.73 kg lg3 (R); Height 5 ft. 4 in. (R); Pain 10/10; 03:00 BP 112 / 89; Pulse 77; Resp 16; Pulse Ox 98% on R/A; pf1 04:00 BP 111 / 59; Pulse 71; Resp 16; Pulse Ox 97% on R/A; Pain 7/10; pf1 04:55 BP 117 / 74; Pulse 78; Resp 16; Pulse Ox 99% on R/A; Pain 6/10; pf1 05:26 BP 122 / 63; Pulse 79; Resp 16; Pulse Ox 97% on R/A; Pain 6/10; pf1 02:03 Body Mass Index 32.44 (85.73 kg, 162.56 cm) lg3 02:03 Pain Scale: Adult lg3 04:00 Pain Scale: Adult pf1 04:55 Pain Scale: Adult pf1 05:26 Pain Scale: Adult pf1 David Coma Score: 04:58 Eye Response: spontaneous(4). Motor Response: obeys commands(6). Verbal Response: sp4 oriented(5). Total: 15. MDM: 02:24 Patient medically screened. sp4 04:48 ED course: FINDINGS: SUPPORTIVE DEVICES: None. LOWER CHEST: Mild basilar sp4 scarring/atelectasis. Unremarkable imaged heart. ABDOMEN AND PELVIS: Liver: Normal. Gallbladder and bile ducts: Normal. Pancreas: Normal. Spleen: Normal. Adrenal glands: Unchanged left adrenal calcification. Normal right adrenal. Kidneys and ureters: 1.2 cm stone within the left renal pelvis associated with mild hydronephrosis and mild surrounding soft tissue stranding. Otherwise normal. Bladder: Nondistended without evident abnormality. Reproductive organs: Unremarkable. GI tract: The distal esophagus, stomach, duodenum and small bowel are unremarkable. Normal appendix. Pancolonic diverticulosis with moderate inflammatory stranding centered around an anteriorly oriented diverticulum of the descending colon. Lymph nodes: No evident adenopathy. Peritoneum: No evidence of ascites, fluid collection, or free air. Abdominal wall: No significant hernia. Vessels: Unremarkable. MUSCULOSKELETAL: No acute osseous abnormality. Mild degenerative changes of the spine and pelvis. IMPRESSION: 1. Acute uncomplicated diverticulitis of the descending colon. 2. A 1.2 cm stone in the left renal pelvis is associated with mild obstructive uropathy. . 04:58 Differential Diagnosis altered mental status, sepsis, flu. Data reviewed: vital signs, sp4 nurses notes, old medical records, lab test result(s), radiologic studies, CT scan. ED course: Patient is positive for acute diverticulitis without perforation, there is pancolonic diverticulosis with moderate inflammatory stranding centered around anteriorly oriented diverticulum of the descending colon. This is read as acute uncomplicated diverticulitis of the descending colon. . 05:51 Consideration of Admission/Observation Escalation of care including sp4 admission/observation considered. ED course: Patient stable for discharge home with Flagyl and Keflex.. 09/14 02:05 Order name: CBC with Diff; Complete Time: 04:48 sb4 09/14 02:05 Order name: CMP; Complete Time: 04:48 sb4 09/14 02:05 Order name: Lipase; Complete Time: 04:48 sb4 09/14 02:53 Order name: Urinalysis W/Microscopic; Complete Time: 04:48 sp4 09/14 03:23 Order name: Urine Culture EDME 09/14 02:05 Order name: CT Abd/Pelvis - IV Contrast Only sb4 09/14 02:05 Order name: IV Saline Lock; Complete Time: 02:44 sb4 09/14 02:05 Order name: Labs collected and sent; Complete Time: 02:44 sb4 09/14 02:54 Order name: Misc. Order: RECOLLECT BLOOD - Hemolyzed; Complete Time: 03:04 ty Administered Medications: 03:03 Not Given (Duplicate Order): [id number] mg IVP once pf1 03:10 Drug: morphine IVP or IV 4 mg IVP once over 4 mins Route: IVP; Infused Over: 4 mins; pf1 Site: right forearm; 04:00 Follow up: Response: No adverse reaction; No change in condition; Pain is decreased; pf1 RASS: Alert and Calm (0) 03:10 Drug: NS 0.9% IV 1000 ml IV at 1 bolus Per protocol; 1000 mL bolus Route: IV; Rate: 1 pf1 bolus; Site: right forearm; 04:00 Follow up: Response: No adverse reaction; Marked relief of symptoms; IV Status: pf1 Completed infusion; IV Intake: 1000ml 03:10 Drug: Ondansetron IVP 4 mg IVP once; over 2 minutes Route: IVP; Site: right forearm; pf1 04:00 Follow up: Response: No adverse reaction; Marked relief of symptoms pf1 03:10 Drug: Ketorolac IVP 30 mg IVP once Route: IVP; Site: right forearm; pf1 04:00 Follow up: Response: No adverse reaction; Marked relief of symptoms; Pain is decreased pf1 04:52 Drug: Rocephin - Rocephin (cefTRIAXone) IVPB 1 grams IVPB once over 30 mins; (mix in 50 pf1 mL NS) Route: IVPB; Infused Over: 30 mins; Site: right forearm; 05:22 Follow up: Response: No adverse reaction; Marked relief of symptoms; IV Status: pf1 Completed infusion; IV Intake: 50ml 05:25 Drug: metroNIDAZOLE IVPB 500 mg 100 ml IVPB at 200 ml/hr once over 30 mins Volume: 100 pf1 ml; Route: IVPB; Rate: 200 ml/hr; Infused Over: 30 mins; Site: right forearm; 05:59 Follow up: Response: No adverse reaction; IV Status: Completed infusion; IV Intake: ha1 100ml 05:27 Drug: morphine IVP or IV 4 mg IVP once over 4 mins Route: IVP; Infused Over: 4 mins; pf1 Site: right forearm; 05:59 Follow up: Response: No adverse reaction ha1 05:27 Drug: metoCLOPramide IVP 10 mg IVP once; over 1 to 2 minutes Route: IVP; Site: right pf1 forearm; 05:59 Follow up: Response: No adverse reaction ha1 Disposition Summary: 09/15/23 05:53 Discharge Ordered Notes: Location: Home sp4 Problem: new sp4 Symptoms: have improved sp4 Condition: Stable sp4 Diagnosis - Diverticulitis of large intestine without perforation or abscess without bleeding sp4 - Left kidney stone, acute descending colon diverticulitis sp4 Followup: sp4 - With: Ian Gonzalez MD - When: 7 - 10 days - Reason: Recheck today's complaints Discharge Instructions: - Discharge Summary Sheet sp4 - Diverticulitis, [id number] sp4 Forms: - Patient Portal Instructions sp4 Prescriptions: - Cephalexin 500 mg Oral Capsule - take 1 capsule ORAL route every 12 hours for 10 days; 20 capsule; Refills: 0, sp4 Product Selection Permitted - Flagyl 500 mg Oral Tablet - take 1 tablet ORAL route every 8 hours for 10 days; 30 tablet; Refills: 0, sp4 Product Selection Permitted - Ibuprofen 800 mg Oral Tablet - take 1 tablet ORAL route every 8 hours As needed take with food; 30 tablet; sp4 Refills: 0, Product Selection Permitted - Tramadol 50 mg Oral tablet - take 1 tablet ORAL route every 8 hours as needed; 20 tablet; Refills: 0, sp4 Product Selection Permitted - promethazine 25 mg Oral tablet - take 1 tablet ORAL route every 6 hours As needed PRN nausea; 30 tablet; sp4 Refills: 0, Product Selection Permitted Signatures: Dispatcher [employer] EDMS Parisa Kaye RN RN lg3 Sondra Mosley, THERESEC PAAnabel [email or web address] Ronit Torres RN RN pf1 Michael Jurado MD MD sp4 Mirza Saunders Heidy RN ha1 Corrections: (The following items were deleted from the chart) 02:06 02:06 CBC+H.LAB.BRZ ordered. EDMS EDMS 02:06 02:06 COMPREHENSIVE METABOLIC PANEL+C.LAB.BRZ ordered. EDMS EDMS 02:06 02:06 LIPASE+C.LAB.BRZ ordered. EDMS EDMS
[2023-09-15 06:10] VITALS: TEMP 98.7
[2023-09-15 06:30] VITALS: BP 122/63; O2SAT 97
--- NOTE | 2023-09-15 12:38 | RAD REPORT ---
EXAM DESCRIPTION: CT - Abdomen Pelvis W Contrast - 09/15/2023 6:49 am CLINICAL HISTORY: Female, 57 years old, ABD PAIN COMPARISON: 10/11/2020 TECHNIQUE: CT acquisition of the abdomen and pelvis following the administration of IV contrast. Cor onal and sagittal reformatted images provided. This exam was performed according to departmental dose -optimization program which includes automated exposure control, adjustment of the mA and/or kV accor ding to patient size, and/or use of iterative reconstruction technique. FINDINGS: SUPPORTIVE DEVICES: None. LOWER CHEST: Mild basilar scarring/atelectasis. Unremarkable imaged heart. ABDOMEN AND PELVIS: Liver: Normal. Gallbladder and bile ducts: Normal. Pancreas: Normal. Spleen: Normal. Adrenal glands: Unchanged left adrenal calcification. Normal right adrenal. Kidneys and ureters: 1.2 cm stone within the left renal pelvis associated with mild hydronephrosis an d mild surrounding soft tissue stranding. Otherwise normal. Bladder: Nondistended without evident abnormality. Reproductive organs: Unremarkable. GI tract: The distal esophagus, stomach, duodenum and small bowel are unremarkable. Normal appendix. Pancolonic diverticulosis with moderate inflammatory stranding centered around an anteriorly oriented diverticulum of the descending colon. Lymph nodes: No evident adenopathy. Peritoneum: No evidence of ascites, fluid collection, or free air. Abdominal wall: No significant hernia. Vessels: Unremarkable. MUSCULOSKELETAL: No acute osseous abnormality. Mild degenerative changes of the spine and pelvis. IMPRESSION: 1. Acute uncomplicated diverticulitis of the descending colon. 2. A 1.2 cm stone in the left renal pelvis is associated with mild obstructive uropathy. Electronically signed by: Diego Wilson MD 09/15/2023 04:44 AM CDT Due to temporary technical issues with the PACS/Fluency reporting system, reports are being signed by the in house radiologist without review as a courtesy to ensure prompt reporting. The interpreting r adiologist is fully responsible for the content of the report.
== END 2023-09-15 06:00 | disposition home or self-care (01) ==
LOC: ER 01:50
DX: K57.32 Diverticulitis of large intestine without perforation or abscess without bleeding (principal); N20.0 Calculus of kidney
CPT/HCPCS: 96365; 96367; 96361; 87088; 85025; 81001; 87086; 36415; 83690; 80053; 74177; 96375; 99284; Q9967; J2765; J2405; J7030; J0696

== ENCOUNTER 2024-02-11 09:48 | Day surgery (SDC) | payer BC, OTHER ==
[2024-02-10 12:39] LABS: Absolute Eosinophils 0.2 K/uL (0-0.5); Absolute Lymphocytes (CBC) 3.1 K/uL (0.7-4.9); Absolute Monocytes 0.5 K/uL (0.1-1.3); Basophils % 0.5 % (0-1.3); Eosinophils % 1.8 % (0-4.4); Hemoglobin 13.7 g/dL (12.0-15.0); Lymphocytes % 35.5 % (15.3-44.8); MCH 29.1 pg (27.0-35.0); MCHC 34.2 g/dL (32.0-36.0); MCV 85.3 fL (80-100); MPV 7.1 fL (7.6-11.3); Monocytes % 5.5 % (3.3-12.3); Neutrophils % 56.7 % (41.7-73.7); Platelets 373 thou/uL (152-406); RBC Red Blood Cell Count 4.69 M/uL (3.86-4.86); Red Cell Distribution Width 12.8 % (12.1-15.2)
[2024-02-10 12:55] LABS: Anion Gap 10.4 mEq/L (5.0-15.0); Potassium 4.4 mEq/L (3.5-5.1)
[2024-02-11] MEDS: NA CHLORIDE 0.9% 1,000 ML ONE (10:15)
[2024-02-11] MEDS ORDERED: SILVER NITRATE 1 APPL TOP ONE (10:37)
[2024-02-11] MEDS ORDERED: LIDOCAINE HCL/EPINEPHRINE 20 ML MDV ONE (10:38)
[2024-02-11 11:10] LABS: Urine Specific Gravity/Preg 1.015 (1.005-1.030)
[2024-02-11] MEDS ORDERED: ONDANSETRON 4 MG/2 ML VIAL ONE (11:46)
[2024-02-11] MEDS ORDERED: propofoL 200 MG/20 ML VIAL IV ONE (11:46)
[2024-02-11] MEDS ORDERED: FENTANYL CITR 100 MCG/2 ML ONE ×2 (11:47→12:19)
[2024-02-11] MEDS ORDERED: LIDOCAINE 2% MPF 5 ML VIAL ONE (11:47)
[2024-02-11] MEDS ORDERED: MIDAZOLAM HCL 2 MG/2 ML INJ ONE (11:47)
[2024-02-11] MEDS ORDERED: FAMOTIDINE 20 MG/2 ML VIAL IV ONE (11:57)
[2024-02-11] MEDS: CEFAZOLIN SODIUM 2 GM/VIAL ONE (12:18)
[2024-02-11] MEDS ORDERED: dexAMETHasone 4 MG/ML VIAL ONE (12:29)
[2024-02-11] MEDS ORDERED: KETOROLAC 30 MG/ML INJ ONE (12:31)
[2024-02-11 12:55] VITALS: O2SAT 100
[2024-02-11] MEDS: HYDROCODONE/APAP 7.5/325 MG TAB ONE (13:45)
--- NOTE | 2024-02-11 14:09 | OP ---
Date of Procedure: 02/11/2024 Surgeon: Aracely Mackey MD Revenue Cycle Analyst: No assistant director of financial aid. Preoperative Diagnosis: Postmenopausal bleeding. Postoperative Diagnoses: Postmenopausal bleeding and endometrial polyps. Procedures Performed: Operative hysteroscopy, polypectomy, and dilation and curettage with MyoSure L ITE. Anesthesia: General with LMA. Specimens: Endometrial polyps and curettings. Complications: No complications. Drains: No drains. Condition: Stable. Estimated Blood Loss: Minimal. Indications: The patient is a 58-year-old with postmenopausal bleeding, evaluated with transvaginal ultrasound that showed thickened endometrium. She was consented for endometrial sampling to rule out atypia or malignancy and brought to the hospital. She is also on menopausal hormone therapy at this time. Procedure In Detail: After informed consent was re-verified, she was taken back to the OR, placed in supine fashion on the operating table. General anesthesia was given. She was placed in a dorsal li thotomy position using Anil stirrups. Vulva, vagina, and perineum were prepped and draped in a ster ile fashion. Speculum was placed to expose the cervix. Anterior lip was grasped with single-tooth t enaculum. Cervix was dilated to 16-[place] and after priming the MyoSure scope, normal saline as dist ention medium, the 0 degree scope was advanced through the cervical canal into the uterine cavity wit hout any problems. Endometrial polyps were noted in the anterior and posterior peryr as well as the fundal area. Endometrium appeared to be slightly thickened and vascular. Both tubal ostia were well visualized. The entire cavity was visualized. The drainage channel was exchanged with a MyoSure LITE device and this was used to cut the polyps and then sampled the endometrium with the same device. All these were handed out for permanent patholog y. All the instruments were removed. Instrument and sponge counts were correct at the end of the ca se. The patient tolerated the procedure well. She was recovered from anesthesia and taken to PACU i n stable condition. Toradol was given before recovery. Ancef was given before surgery.. She will f ollow up in 1 week for path results and plan. DENIA/JIHAN Voice ID: [id number] Report ID: [id number]
[2024-02-11 14:30] VITALS: BP 121/64; TEMP 97.1
--- NOTE | 2024-02-11 16:54 | EKG ---
Test Date: 2024-02-10 Test Time: 12:37:16 Digital Computer Operator: RICCARDO MEASUREMENT RESULTS: Intervals: Rate: 60 ID: [id number] QRSD: 80 QT: 400 QTc: 400 [place]: P: 60 ID: [id number] QRS: 66 T: 63 INTERPRETIVE STATEMENTS: Normal sinus rhythm Normal ECG No previous ECG available for comparison Electronically Signed On 02-11-24 16:50:38 CDT by River Burt
== END 2024-02-11 14:15 | disposition home or self-care (01) ==
LOC: OR 09:48
PROVIDERS: ATTEND Obstetrics & Gynecology
PROC: 0UDB8ZX Extraction of Endometrium, Via Natural or Artificial Opening Endoscopic, Diagnostic (ICD-10-PCS; principal; 2024-02-11 11:30)
DX: N95.0 Postmenopausal bleeding (principal); N84.0 Polyp of corpus uteri
CPT/HCPCS: 93005; 85025; 80048; 36415; 81025; 82947 ×2; 88305; 58558; J2704; J1100; J2001; J2250; J3010 ×2; J2405; J7030

== ENCOUNTER 2024-03-24 09:51 | Day surgery (SDC) | payer BC, OTHER ==
[2024-03-22 14:19] LABS: Absolute Eosinophils 0.1 K/uL (0-0.5); Absolute Lymphocytes (CBC) 1.5 K/uL (0.7-4.9); Absolute Monocytes 0.7 K/uL (0.1-1.3); Absolute Neutrophil 7.9 K/uL (1.8-8.0); Basophils % 0.3 % (0-1.3); Eosinophils % 1.4 % (0-4.4); Hematocrit 40.5 % (36.0-45.0); Hemoglobin 13.7 g/dL (12.0-15.0); Lymphocytes % 14.8 % (15.3-44.8); MCH 29.8 pg (27.0-35.0); MCHC 33.9 g/dL (32.0-36.0); MPV 7.1 fL (7.6-11.3); Monocytes % 6.7 % (3.3-12.3); Neutrophils % 76.8 % (41.7-73.7); Platelets 372 thou/uL (152-406); Red Cell Distribution Width 13.5 % (12.1-15.2)
[2024-03-22 14:21] LABS: Specific Gravity 1.026 (1.005-1.030); Urine Bacteria <20 /HPF (<20); Urine Bilirubin NEGATIVE (Negative); Urine Blood Negative (Negative); Urine Clarity Extremely Turbid (Clear); Urine Color Yellow (Yellow); Urine Crystals Unidentified Few /HPF (None Seen); Urine Culture Reflex Order NOT NEEDED; Urine Glucose NEGATIVE (Negative); Urine Ketones NEGATIVE (Negative); Urine Microscopic Reflex YN ORDER UMIC; Urine Mucus Slight /HPF (None Seen); Urine Nitrite NEGATIVE (Negative); Urine Protein TRACE (Negative); Urine Urobilinogen Normal (Normal); Urine WBC <5 /HPF (<5); Urine WBC Clump Rare /HPF (None Seen); Urine Yeast (Budding) Trace /HPF (None Seen); Urine pH 6.5 (5.0-7.0)
--- NOTE | 2024-03-23 11:47 | EKG ---
Test Date: 2024-03-22 Test Time: 14:42:07 Document Restorer: BARBI MEASUREMENT RESULTS: Intervals: Rate: 90 FL: 146 QRSD: 80 QT: 336 QTc: 411 [place]: P: 65 FL: 146 QRS: 57 T: 53 INTERPRETIVE STATEMENTS: Normal sinus rhythm Normal ECG Compared to ECG 02/10/2024 12:37:16 No significant changes Electronically Signed On 03-23-24 11:46:32 AMBULANCE OFFICER by Ray Rodríguez
[2024-03-24] MEDS ORDERED: SCOPOLAMINE HYDROBROMIDE PATCH TD ONE (10:25)
[2024-03-24] MEDS: NA CHLORIDE 0.9% 1,000 ML ONE (10:30)
[2024-03-24] MEDS ORDERED: FENTANYL CITR 250 MCG/5 ML ONE (10:45)
[2024-03-24] MEDS ORDERED: propofoL 200 MG/20 ML VIAL IV ONE (10:45)
[2024-03-24] MEDS ORDERED: KETAMINE HCL IN 0.9 % NACL 50 MG/5 ML SYRINGE IV ONE (10:45)
[2024-03-24] MEDS ORDERED: ROCURONIUM 50 MG/5 ML VIAL IV ONE (10:45)
[2024-03-24] MEDS ORDERED: MIDAZOLAM HCL 2 MG/2 ML INJ ONE (10:45)
[2024-03-24] MEDS ORDERED: dexAMETHasone 10 MG/ML VIAL ONE (10:45)
[2024-03-24] MEDS ORDERED: ONDANSETRON 4 MG/2 ML VIAL ONE (10:45)
[2024-03-24] MEDS ORDERED: LIDOCAINE 1% MPF 5 ML VIAL ONE (10:45)
[2024-03-24] MEDS: CEFAZOLIN SODIUM 2 GM/VIAL ONE (10:47)
[2024-03-24 11:03] LABS: Urine Specific Gravity/Preg >1.030 (1.005-1.030)
[2024-03-24] MEDS: BUPIVACAINE 0.25% PF 30 ML VIAL ONE (11:39)
[2024-03-24] MEDS ORDERED: KETOROLAC 30 MG/ML INJ ONE (13:08)
[2024-03-24] MEDS: Ringers Lactate 1,000 ML IV ONE (13:18)
[2024-03-24] MEDS: HYDROMORPHONE HCL 1 MG/ML INJ ONE ×2 (14:38→14:48)
[2024-03-24] MEDS: MORPHINE 4 MG/ML SYR ONE (15:00)
[2024-03-24] MEDS: MEPERIDINE HCL 25 MG/ML SYR ONE (15:42)
[2024-03-24] MEDS: HYDROCODONE/APAP 5/325 MG TAB ONE (18:06)
[2024-03-24 18:20] VITALS: BP 121/61; TEMP 97; O2SAT 99
--- NOTE | 2024-03-25 01:19 | OP ---
Date of Procedure: 03/24/2024 Surgeon: Aracely Mackey MD Oreman: Rhoda Espino. Preoperative Diagnoses: Recurrent postmenopausal bleeding, history of endometrial polyps and uterine prolapse. Postoperative Diagnoses: Recurrent postmenopausal bleeding, history of endometrial polyps and uterin e prolapse. Procedures Performed: 1.Total laparoscopic hysterectomy, bilateral salpingo-oophorectomy, and lysis of sigmoid adhesions. 2.Uterosacral ligament suspension colpopexy and cystoscopy. Estimated Blood Loss: Minimal, 25 mL. Specimens: Uterus, bilateral tubes and ovaries. Complications: None. Drains: No drains. Condition: Stable. Anesthesia: General endotracheal. Findings: Left sigmoid adhesions were present from the left lateral wall in the paracolic gutter all the way down into the pelvis. Then, there was significant adhesions to the tube as well. These wer e taken down and hysterectomy was performed. Vaginal cuff was closed with PDS sutures x5 in interrup marya fashion. Then, the prolapse on the level 1 support was noted even at the beginning of the case o n exam under anesthesia, so plan was to perform an uterosacral colpopexy in order to prevent wall pro lapse. On cystoscopy, the ureters were patent and no evidence of any trauma to the bladder. Indications: The patient is a 58-year-old, who is known to the practice. She had postmenopausal ble eding 2 years ago, had hysteroscopy and then polypectomy. The pathology was benign. She has been on hormone therapy and now she has recurrent postmenopausal bleeding with thickened endometrium on endo metrial sampling. There was no atypia or malignancy. However, the cycle was heavy, changing a tampo n every 1-2 hours and this has been happening regularly for 2-3 months. Therefore, we discussed abou t all the different options including conservative management with surveillance with ultrasound and h ormone level checked with cessation of hormone therapy, then observation or hysterectomy, bilateral s alpingo-oophorectomy, which will help resolve the problem altogether. The patient wanted to proceed with this as she had been managed with conservative management over the past 2 years and she was cons ented and brought to the OR. Description Of Procedure: After informed consent was verified, she was taken back to OR, placed in a supine fashion on the operating table. General anesthesia was given. 2 g of Ancef were given. SCD s were placed and the patient was grounded. Positioning was checked. Time-out was done. Abdomen pr epped with ChloraPrep; vulva, vagina, and perineum with Betadine and draped in a sterile fashion. Speculum was placed to expose the cervix. Anterior lip grasped with a single-tooth tenaculum, dilate d to 16-[place] Citizen and a large cup uterine manipulator was introduced and fixed in place and instruments were removed. Wagner was placed to drain the bladder and attached to a drainage bag. This area was d raped. A 1 cm infraumbilical curvilinear incision made with a scalpel using the open laparoscopy technique. Fascia was incised tagged with 0 Vicryl sutures. Peritoneum entered sharply. Ana Luisa was introduced after adequate insufflation. Site of entry was checked and was unremarkable. Upper abdominal surfa ce was unremarkable as well. Two 5 left and right lower quadrant ports were placed under direct visi on and a 10 suprapubic port. All the skin and fascial sites injected with bupivacaine. After the patient was placed in Trendelenburg, all the findings as dictated above were noted. Lysis of sigmoid adhesions. These were taken down with the help of sharp dissection starting in the paracolic gutter and gradually taking it down leaving the natural attachment of the colon in its plac e. All the adhesions were taken down sharply with scissors as well as the LigaSure. Then coming ammy n to the pelvic brim, carefully the peritoneum was from the bowel finding the correct plane and then going down into the pelvis and the epiploicae from the lateral wall. The ureter was identified in the left lateral wall and at the level of the ureteric tunnel. The right side was also visualized and ureter was traced in its entire pelvic course and there was no distortion. Hysterectomy: The utero-ovarian ligament was isolated by opening the peritoneum between the ureter a nd the IP as well as laterally the mesosalpinx. Then the pedicle was taken down with the help of the LigaSure. The round ligament was cauterized and cut as well, then taken down the broad ligament on the left side to the level of the vessels. Then the anterior and posterior peritoneum were reflected separately anteriorly. Bladder flap was raised and bladder dissected inferiorly. Very slight traum a to the superficial portion of the detrusor which was negligible on filling and draining the bladder . Then posteriorly, the peritoneum opened up all the way to expose the area of the uterine manipulat or cup posteriorly. The uterine vessels were exposed, cauterized and cut with bipolar and monopolar. Then, the cardinal ligaments were also cauterized and cut with the same. I went onto the opposite side and similar dissection was performed opening and isolating the IP ligament and then taking down the round ligament, opening up the broad ligament anteriorly connecting the bladder flap and posterio rly taken down the ureter away and the uterine vessels towards the posterior cup. Broad l igament taken down to skeletonize the vessels and vessels taken down with the bipolar and monopolar v essel sealer and a hook blade. The bladder was dissected inferiorly on the midline on the anterior vaginal wall by sharp dissection and then later with pushing using a Q-tip. A 2 cm space was created here to expose the entire anteri or vaginal wall. Then circumferential colpotomy was performed with monopolar hook blade after taking the cardinal ligaments on the right side as I did the colpotomy. The colpotomy was completed from t he left side and towards the back. The specimen retrieved through the vagina. The vaginal occluder was placed. Irrigated properly the incision of the uterosacral ligament area was bleeding on the right side and t his was cauterized with the tip of the curved tip bipolar. After thorough irrigation and suction and assuring that there was excellent hemostasis, cuff was closed with the PDS sutures. Two simple sutures at both angles and 3 [id number] in the middle. The uterosacral ligament suspension as there was laxity of the uterosacral ligaments on the apical pr olapse more detachment from the left uterosacral than the right. Uterosacral ligaments were identifi ed and 5 cm proximal to the insertion, the uterosacral bite was taken with a CT 1 needle using a 0 PD S suture and this was attached to the cuff both anteriorly and posteriorly on the left side, then ano ther suture taken through the opposite uterosacral ligament making sure it did not kink the ureter. Then, a [id number]-kulug was placed to attach the cuff and distribute the suspension equally on both s ides. There was excellent support of the vaginal cuff. No significant posterior enterocele was pres ent. Thorough irrigation suction was performed and the ureter had no evidence of electrical, mechani marquis, or thermal injury to them on either sides. The bowel was safe. All the trocars were removed un buhmi direct vision after irrigating and suctioning the peritoneal cavity and the patient was taken out of Trendelenburg, trocars removed under direct vision, and after gas was desufflated, Ana Luisa was rem kelsie and fascia closed with the tag 0 Vicryl sutures tied to each other and a simple 0 Vicryl stitch on the fascia on the suprapubic site. All skin incisions closed with interrupted 4-0 Monocryl. Vagi nal sponge was removed. Wagner was removed and cystoscopy was performed. Cystoscopy with 30-degree lens, normal saline, was done to visualize both ureteric orifices. No evid ence of any trauma to the bladder. The bladder was drained. The patient was recovered from anesthes ia. Instrument, needle, and sponge counts were correct at the end of the case. The patient tolerate d the procedure well. EBL of 25, taken to the PACU in stable condition. She will follow up in 1 wee k and 4 weeks postop. DENIA/JIHAN Voice ID: [id number] Report ID: [id number]
== END 2024-03-24 18:20 | disposition home or self-care (01) ==
LOC: OR 09:51
PROVIDERS: ATTEND Obstetrics & Gynecology
PROC: 0UT24ZZ Resection of Bilateral Ovaries, Percutaneous Endoscopic Approach (ICD-10-PCS; 2024-03-24)
PROC: 0UT74ZZ Resection of Bilateral Fallopian Tubes, Percutaneous Endoscopic Approach (ICD-10-PCS; 2024-03-24)
PROC: 0USG4ZZ Reposition Vagina, Percutaneous Endoscopic Approach (ICD-10-PCS; 2024-03-24)
PROC: 0DNN4ZZ Release Sigmoid Colon, Percutaneous Endoscopic Approach (ICD-10-PCS; 2024-03-24)
PROC: 0UT94ZZ Resection of Uterus, Percutaneous Endoscopic Approach (ICD-10-PCS; principal; 2024-03-24 11:30)
DX: N95.0 Postmenopausal bleeding (principal); K66.0 Peritoneal adhesions (postprocedural) (postinfection); E11.9 Type 2 diabetes mellitus without complications; N88.8 Other specified noninflammatory disorders of cervix uteri; N80.03 Adenomyosis of the uterus; N83.8 Other noninflammatory disorders of ovary, fallopian tube and broad ligament
CPT/HCPCS: 58571; 57283; 44180; 93005; 85025; 81001; 80048; 36415; 86900; 86850; 81025; 86901; 82947 ×2; J2704; J2003; J2250; J3010; J1100; J2175; J1171 ×2; J2405; J7120; J7030